=== PATIENT | male | born 1960 | race Caucasian/White ===

== ENCOUNTER 2017-03-09 17:01 | Emergency (ER) | payer BC ==
[2017-03-09 17:12] VITALS: BP 125/66
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
== END 2017-03-09 17:55 | disposition home or self-care (01) ==
LOC: UCEAST 17:01
DX: R60.9 Edema, unspecified (principal); K75.81 Nonalcoholic steatohepatitis (NASH); K76.0 Fatty (change of) liver, not elsewhere classified
CPT/HCPCS: 99212; G0463

== ENCOUNTER 2017-03-09 18:16 | Emergency (ER) | payer BC ==
[2017-03-09 20:06] LABS: Hematocrit 35 % (42-52); Mean Corpuscular HGB Conc 34 g/dl (31-36); Mean Corpuscular Hemoglobin 33 pg (27-31); Mean Corpuscular Volume 99 fL (80-94); Mean Platelet Volume 8 um3 (7.4-10.4); Red Blood Count 3.59 10^6/ul (4.0-5.4); Red Cell Distribution Width 14 % (10.5-15); White Blood Count 6.7 10^3/ul (3.5-10.8)
[2017-03-09 20:21] LABS: Albumin 2.9 g/dL (3.2-5.2); BUN/Creatinine Ratio 14.3 (8-20); Calcium 8.5 mg/dL (8.6-10.3); EGFR African American 148.4 (>60); EGFR Non-African American 115.4 (>60); Globulin 3.1 g/dL (2-4); Potassium 3.8 mmol/L (3.5-5.0); Total Bilirubin 0.9 mg/dL (0.2-1.0)
[2017-03-09] MEDS ORDERED: Furosemide TAB* 20 MG PO ONE (21:18)
[2017-03-09 22:54] LABS: Urine Bacteria Absent (Absent)
[2017-03-09 23:03] LABS: Urine Bilirubin Negative (Negative); Urine Glucose Negative (Negative); Urine Nitrite Negative (Negative)
[2017-03-09 23:50] VITALS: BP 121/58
--- NOTE | 2017-03-10 08:05 | RAD ---
Indication: Ascites. Real-time sonography of the abdomen was performed. The liver measures 13.2 cm in length. No focal lesions are noted although evaluation of the liver is limited due to body habitus. Moderate amount of ascites is noted. There is likely cirrhosis noted with lobulated contours of the liver. Gallbladder is not well demonstrated due to body habitus. The common duct measures 2.5 mm. The right kidney measures 11.0 x 6.5 x 6.3 cm with no hydronephrosis. The pancreas is obscured by overlying gas. Aorta and inferior vena cava are unremarkable. IMPRESSION: Likely cirrhotic liver with a small to moderate amount of ascites. Gallbladder is limited in evaluation.
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
== END 2017-03-09 23:51 | disposition home or self-care (01) ==
LOC: ED 18:16
DX: R18.8 Other ascites (principal); R60.9 Edema, unspecified
CPT/HCPCS: 36415; 76705; 80053; 81003; 83880; 84484; 85027; 85610; 85730; 93005; 99283; A9270-GY

== ENCOUNTER 2017-05-19 11:12 | Inpatient (IN) | payer BC ==
[2017-05-19 12:45] LABS: Hematocrit 34 % (42-52); Hemoglobin 11.7 g/dl (14.0-18.0); Mean Corpuscular HGB Conc 34 g/dl (31-36); Mean Corpuscular Hemoglobin 34 pg (27-31); Mean Corpuscular Volume 99 fL (80-94); Mean Platelet Volume 8 um3 (7.4-10.4); Red Blood Count 3.47 10^6/ul (4.0-5.4); Red Cell Distribution Width 15 % (10.5-15); White Blood Count 4.8 10^3/ul (3.5-10.8)
[2017-05-19 13:12] LABS: Albumin 2.7 g/dL (3.2-5.2); BUN/Creatinine Ratio 30.4 (8-20); Calcium 8.6 mg/dL (8.6-10.3); EGFR African American 150.9 (>60); EGFR Non-African American 117.4 (>60); Potassium 3.8 mmol/L (3.5-5.0); Total Bilirubin 0.8 mg/dL (0.2-1.0); Total Protein 5.7 g/dL (6.4-8.9)
[2017-05-19] MEDS ORDERED: Pantoprazole IV* 40 MG IV ONE (14:52)
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
[2017-05-19] MEDS ORDERED: Pantoprazole IV* 80 MG in NS 0.9% 100 ML* 100 ML IVPB ONE (15:00)
[2017-05-19] MEDS ORDERED: Ondansetron INJ* 2 MG/ML VIAL IV PRN (15:34)
[2017-05-19] MEDS ORDERED: Octreotide Acetate* 50 MCG in NS 0.9% 50 ML* 50 ML IVPB ONE (15:34)
[2017-05-19] MEDS ORDERED: Octreotide Acetate* 500 MCG in NS 0.9% 100 ML* 100 ML IVPB SCH (17:00)
[2017-05-19 18:29] LABS: Hematocrit 32 % (42-52); Hemoglobin 10.9 g/dl (14.0-18.0)
[2017-05-19 19:11] LABS: Urine Bilirubin Negative (Negative); Urine Glucose Negative (Negative); Urine Nitrite Negative (Negative)
--- NOTE | 2017-05-19 20:03 | HP ---
CC: Ella Courtney NP; Dr. Harman; Dr. Jaffe * HISTORY AND PHYSICAL: DATE OF ADMISSION: 05/19/17 PRIMARY CARE PROVIDER: Ella Courtney NP ATTENDING PHYSICIAN WHILE IN THE HOSPITAL: Steven Humphries MD * (report dictated by Ángel Sage NP) CONSULTING GASTROENTEROLOGY SPECIALIST: Dr. Jaffe. CHIEF COMPLAINT: 1. Tarry stool. 2. Bright red blood per rectum. HISTORY OF PRESENT ILLNESS: Mr. Segundo is a 57-year-old male patient who has a history of DELEON, varices, portal hypertension, IBS, hypertension, cataracts, which he recently just had extracted today and a history of Lyme disease. He comes into our ER today stating that this morning he noted when he got up at 5:30 in the morning to get ready for his cataract extraction he had an episode of a tarry black stool with also red blood mixed in with the stool. He says this is the first time he has noticed this, but the has noticed it and said that she has been noticing this off and on for the last week. Also, he has been complaining of more weakness and confusion off and on intermittently since Wednesday and just not acting himself. The patient did not really allude to this, but the has been noticing this. He says he has not had any chest pain or any shortness of breath. He denies any abdominal discomfort. He does have the history of the varices. He has not been having any vomiting. No nausea. He denies having any hematemesis. He denied having any, again chest pain or shortness of breath and no abdominal discomfort. No recent fevers or chills. He states he has been taking his medications all along with the exception today he did not take his meds because he was n.p.o. for the cataract extraction. The patient denies having any pain per rectum. He has only had the one episode of stool discoloration this morning. There has been none today. He came into the ED, was evaluated. There was concern for the GI bleeding and we were asked to evaluate for admission. PAST MEDICAL HISTORY: Significant for: 1. Esophageal varices. 2. Portal hypertension. 3. IBS. 4. Hypertension. 5. Cataracts. 6. DELEON. 7. Lyme disease. PAST SURGICAL HISTORY: 1. Cataract extraction. 2. Ankle surgery. HOME MEDICATIONS: Include: 1. Hyoscyamine 0.375 mg p.o. b.i.d. 2. Gugulipid 500 mg daily. 3. Vitamin E 400 mg daily. 4. Fish oil 2400 mg p.o. daily. 5. Ferrous sulfate 650 mg p.o. daily. 6. Magnesium 250 mg daily. 7. Vitamin B6, 100 mg daily. 8. B12, 1000 mcg daily. 9. Lecithin 1200 mg daily. 10. Vitamin C 500 mg daily. 11. Actigall 600 mg p.o. b.i.d. 12. Carafate 1 g p.o. t.i.d. 13. Diovan 320 mg p.o. daily. 14. Prevacid 30 mg daily. 15. Fexofenadine 180 mg p.o. daily. ALLERGIES TO MEDICATIONS: Include no known drug allergies. FAMILY HISTORY: His mother had valvular heart disease. His father, he thinks, had esophageal varices as well. SOCIAL HISTORY: He is a former smoker. Last time he had alcohol was 2 weeks ago. He does drink occasionally. Surrogate decision maker is his . REVIEW OF SYSTEMS: There is no documented fever. He denied having any significant weight change. There was no double vision. He denies having any ear discharge. There was no rhinorrhea. No sore throat. No thyroid enlargement. Denies having any dysuria. No frequency. There was no seizure and no loss of consciousness. No pruritus. Had no skin ulcerations. Review of 14 systems completed, all others negative. PHYSICAL EXAMINATION GENERAL: At this time, Mr. Segundo is a 57-year-old male patient. He is sitting in the ER stretcher. He does not appear to be in any acute distress. He is awake and he is alert. VITAL SIGNS: Blood pressure 106/56, pulse 72, respirations 18, O2 sat 97%, temperature 98.6. HEENT: Head: Atraumatic, normocephalic. Eyes: EOMs are intact. Sclerae are anicteric and not pale. Throat: Oral mucosa appears to be moist. No oropharyngeal erythema. NECK: Supple. LUNGS: Clear to auscultation bilaterally. No wheezes, rales or rhonchi were noted. HEART: Sounds S1, S2. Regular rate and rhythm. No murmurs, rubs, or gallops. ABDOMEN: Soft, flat, nontender. Bowel sounds are present. EXTREMITIES: Pulses were 2+ throughout. He is moving all 4 extremities with 5/ 5 strength. NEUROLOGIC: He is awake, he is alert. He is oriented x3. Tongue midline. Celebrity Chef Entrepreneur Media Personality are equal. He had no gross focal deficits. SKIN: Intact. LABORATORY DATA: WBC of 4.8, RBC 3.47, hemoglobin 11.7 which is near his baseline, hematocrit 34, platelet count of 155,000. INR was 1.12. Sodium was 135, potassium 3.8, chloride 107, bicarb 22, BUN 21, creatinine 0.69, glucose of 92, calcium 8.6, total bili is 0.8, AST 41, ALT 35. Ammonia is pending. His alk phos was 238. Albumin 2.7. Old medical records were reviewed. ASSESSMENT AND PLAN: Mr. Segundo is a 57-year-old male patient coming into the ER today with bright red blood per rectum and tarry stools. He will be admitted under observation status for: 1. GI bleed. This could be a lower GI bleed, also could be an upper GI bleed. He denies taking any NSAIDs, but he does have a history of esophageal varices , which is concerning for possible upper bleeding. My plan at this point is to go ahead and put him on Protonix drip and octreotide drip per the recommendations of Dr. Jaffe. We will get him on 2 saline logs as well. We will check serial H and H's. He has been typed and screened already and we will transfuse him if needed and we will follow him closely. He will be on a clear liquid diet. 2. Altered mental status. Again, at this point it seems to be pretty clear he is neurologically intact. I will check an ammonia level. Certainly that could be causing him to feel fatigued and confused at times. We will also get a flu swab and urine as well and we will monitor for any fevers. I am not going to give him any antibiotics at this point. He seems to be at his baseline. 3. History of portal hypertension and esophageal varices. He can follow with Dr. Harman. 4. History of nonalcoholic steatohepatitis. He can follow with his primary GI specialist. We will continue meds as prescribed. 5. Irritable bowel syndrome. Continues his p.o. meds. 6. Hypertension. In the setting of a possible bleed, we will hold his Diovan. 7. History of Lyme disease. Not an active issue. Currently, he will follow with his primary. 8. DVT prophylaxis. He is placed on SCDs. 10. Fluids, electrolytes, and nutrition: Clear liquid diet. TIME SPENT: Time spent on the admission approximately 60 minutes, greater than half of the time was spent [id number] with the patient, obtaining my history and physical, the other half of the time was spent going over the plan of care with the patient and implementing the plan of care. I did discuss plan of care with my attending, Dr. Humphries, he is in agreement. ÁNGEL SAGE NP [id number]/[facility]PS #: [id number] DIEGO
[2017-05-19] MEDS: RiFAXimin* 550 MG TAB PO SCH (20:47)
[2017-05-19] MEDS: Sucralfate TAB* 1 GM PO SCH (20:47)
[2017-05-19] MEDS: HYOSCYAMINE 0.375 MG PO SCH (20:48)
--- NOTE | 2017-05-19 23:22 | CONS ---
GASTROENTEROLOGY CONSULTATION DATE: 05/19/17 CONSULTING PHYSICIANS: Africa Barreto, Steven Humphries. REASON FOR CONSULTATION: Dark stool with visible blood this morning, with sporadic loose stools and dark stool over the last month. HISTORY: This 57-year-old man with cirrhosis, first having banding of esophageal varices 10 years ago. This morning, had cataract surgery on the right eye by Dr. Amaury Lanza at [facility]. He and his went down there, although they were aware that he had had some fluctuating symptoms recently and a dark stool this morning. They had seen some red blood emanating out from the stool. He had not had any vomiting or dizziness. In the recent months, he had lost some weight down to 201, but then over the last week or 10 days, it went up back to 218. His has seen dark stool in the toilet. He was told by Ella Courtney NP, at his primary office to increase his iron from 1 a day to 2. He has had cirrhosis known for 10 or 11 years. His alcohol use is difficult to pin down, but he quit drinking around the time liver disease was determined. His father had alcoholic cirrhosis. He has had many upper endoscopies with placement of bands, though in the recent years for the most part, portal hypertensive gastropathy has been seen. His only hospitalization was observation after a liver biopsy. He has been on ursodiol at times and also on furosemide 40 mg. PAST MEDICAL HISTORY: 1. Status post ankle surgery in 1986 on the left with fractures. 2. Hypertension. 3. History of GERD. 4. Cirrhosis with splenomegaly and ascites. His INR has always been pretty good and is currently 1.12. His platelets are 155. His albumin has been trending downward to currently 2.7. His alkaline phosphatase has been up since 2014. SOCIAL HISTORY: He is and he has retired from the [employer]. His children are in [place] and he related much of the history related to trips down there with effects on his bowel function. REVIEW OF SYSTEMS: No recent fevers or syncope. He has had some times when he seems to be spacey and not as well oriented, though these do not last very long. There have been no overt seizures or neuro deficit. He has not had any falls. No history of cough, hemoptysis, hematuria. PHYSICAL EXAM: He just had the right eye cataract done today. HEENT exam is otherwise unremarkable. He is anicteric. He has a protective plastic bubble over the right eye. He has no adenopathy. His lungs are clear and heart sounds are normal. The abdomen is obese and it is unclear if there is ascites. Rectal: Deferred. Extremities show deformity on the left ankle. There is otherwise no edema. He is alert and oriented. DIAGNOSTIC STUDIES/LAB DATA: Radiology review - he had an ultrasound of the abdomen in February, then a CT in March showing cirrhosis but no focal abnormality. Most recent alpha-fetoprotein in the hospital database, March 2016, was 2.6. Ferritin, 05/06/17, was 39.3 with iron saturation 21%, 65/316. ALTs, 10 values going back to November 2011, uniformly been in the 30s to low 40s. IMPRESSION: This 57-year-old man with longstanding cirrhosis, probably alcoholic, possibly with some nonalcoholic liver disease, or combination, now sometimes of bleeding today and possibly sporadically over the last month or two. Today, he had a cataract operation and how that will affect decisions on investigating the bleeding is unclear. Fortunately, the risk of a major variceal bleed is reduced with all the sessions of banding he has had through the last 10 years. Most likely, he has got an oozing gastric portal hypertensive bleed. Empirically, he is being placed on octreotide and IV PPI and they may be all that is required until his eye surgical site can be cleared as stabilized. Fortunately, his INR and platelet count are perfectly adequate. [id number]/[facility] #: [id number] MTDD
[2017-05-19 23:26] LABS: Hematocrit 30 % (42-52); Hemoglobin 10.2 g/dl (14.0-18.0)
[2017-05-20] MEDS: Pantoprazole IV* 80 MG in NS 0.9% 100 ML* 100 ML IVPB SCH ×3 (03:53→23:34)
[2017-05-20 05:55] LABS: Hematocrit 30 % (42-52); Hemoglobin 10.3 g/dl (14.0-18.0); Mean Corpuscular HGB Conc 35 g/dl (31-36); Mean Corpuscular Hemoglobin 34 pg (27-31); Mean Corpuscular Volume 98 fL (80-94); Mean Platelet Volume 7 um3 (7.4-10.4); Red Blood Count 3.02 10^6/ul (4.0-5.4); Red Cell Distribution Width 15 % (10.5-15); White Blood Count 3.4 10^3/ul (3.5-10.8)
[2017-05-20 05:58] LABS: Add Diff/Slide Review? Slide Review Added; Comments Flag Yes
[2017-05-20] MEDS ORDERED: Influenza VAC *QUAD* 2017-18* 0.5 ML SYRINGE IM ONE (09:00)
[2017-05-20] MEDS: HYOSCYAMINE 0.375 MG PO SCH ×2 (09:56→20:54)
[2017-05-20] MEDS: Sucralfate TAB* 1 GM PO SCH ×3 (09:58→20:55)
[2017-05-20] MEDS: RiFAXimin* 550 MG TAB PO SCH ×2 (09:58→20:55)
--- NOTE | 2017-05-20 11:36 | PN ---
Subjective Date of Service: 05/20/17 Interval History: This is a 57 yo gentleman with chronic liver failure secondary to DELEON with associated portal hypertension and varices, previously banded who was admitted yesterday with a GI bleed. He underwent a cataract extraction yesterday. He was treated with octreotide and Protonix drips. This am, he has had no further BMs since admission. No abd pain, n/v. He was intermittently confused and lethargic over the last week and he states this am he feels well. Objective Active Medications: Hyoscyamine (Levbid (Nf)) 0.375 mg PO BID [facility] Last Admin: 05/20/17 09:56 Dose: 0.375 mg Pantoprazole Sodium 80 mg/ (Sodium Chloride) 100 mls @ 10 mls/hr IVPB Q10H [facility] Last Admin: 05/20/17 03:53 Dose: 10 mls/hr Lactulose (Lactulose*) 30 ml PO TID [facility] Last Admin: 05/20/17 09:59 Dose: 30 ml Ondansetron HCl (Zofran Inj*) 4 mg IV Q6H PRN PRN Reason: NAUSEA Rifaximin (Xifaxan*) 550 mg PO BID [facility] Last Admin: 05/20/17 09:58 Dose: 550 mg Sucralfate (Carafate*) 1 gm PO TID [facility] Last Admin: 05/20/17 09:58 Dose: 1 gm Vital Signs: Temp Pulse Resp BP Pulse Ox 97.6 F 73 16 101/51 97 05/20/17 07:41 05/20/17 07:41 05/20/17 10:21 05/20/17 07:41 05/20/17 07:41 Oxygen Devices in Use Now: None Appearance: Well appearing 57 yo male in NAD, accompanied by his . Respiratory: Symmetrical Chest Expansion and Respiratory Effort, Clear to Auscultation Cardiovascular: RRR, - - murmur, 3/6 Abdominal: NL Sounds; No Tenderness; No Distention Extremities: - - trace LE edema Neurological: Alert and Oriented x 3 Result Diagrams: 05/20/17 05:46 05/19/17 12:34 Additional Lab and Data: . Microbiology and Other Data: Microbiology 05/19/17 16:30 Influenza Types A,B Antigen (RADHA) - Final Nasopharyngeal Specimen received for Influenza A/B Molecular testing Assess/Plan/Problems-Billing Assessment: This is a 57 yo male with chronic liver failure secondary to DELEON with portal HTN and esophageal varices who presented with a GI bleed. - Patient Problems (1) GI bleed Comment: Features of upper and lower GI bleed Hgb stable overnight, no further stools since admission Unlikely to be a variceal bleed based on his stability Plan to stop octreotide drip Cont Protonix drip Maintain clear liquid intake EGD will be delayed at this time as there is no evidence of ongoing bleeding and cataract procedure yesterday, this will be done as an outpatient with Dr Harman GI consult appreciated (2) Hepatic encephalopathy Comment: Mentation clear this am and appears alert Cont lactulose, titrate dose to 3-4 soft BMs daily (3) Chronic liver failure Comment: Secondary to DELEON with portal HTN and esophageal varices Followed by Dr Harman No evidence of acute decompensation (4) HTN (hypertension) Comment: Normotensive at this time Hold antihypertensive medications in the setting of GIB (5) Full code status (6) DVT prophylaxis Comment: Active bleeding, chemical prophylaxis contraindicated Status and Disposition: Inpatient. Anticipate possible discharge tomorrow
--- NOTE | 2017-05-20 11:55 | PN ---
Progress Note - Progress Note Date of Service: 05/20/17 SOAP: Subjective: Mr. Segundo is a 57 yo male with a history of esophageal varices, DELEON, portal hypertension, hypertension, IBS, and cataract extraction on the day of admission who presented to the ED c/o dark tarry stool surrounded by red blood. Patient states this is the first occurrence that he's noticed, although states she has witnessed other occurrences intermittently within the last month. Patient also admits to intermittent fatigue, weakness, and confusion. Patient seems to be doing well this morning and denies any symptoms such as fatigue, confusion, fevers, chills, CP, SOB, coughing, abdominal pain, nausea, vomiting. Last BM was yesterday morning, although patient admits to not having much to eat since before his cataract procedure. Objective: Vital Signs Temp Pulse Resp BP Pulse Ox 97.6 F 73 16 101/51 97 05/20/17 07:41 05/20/17 07:41 05/20/17 10:21 05/20/17 07:41 05/20/17 07:41 Laboratory Results - last 24 hr 05/19/17 05/19/17 05/19/17 12:34 12:34 12:34 WBC 4.8 RBC 3.47 L Hgb 11.7 L Hct 34 L MCV 99 H MCH 34 H MCHC 34 RDW 15 Plt Count 155 MPV 8 Neut % (Auto) 71.8 Lymph % (Auto) 14.1 L Sandoval % (Auto) 11.3 H Eos % (Auto) 1.5 Baso % (Auto) 1.3 Absolute Neuts (auto) 3.5 Absolute Lymphs (auto) 0.7 L Absolute Monos (auto) 0.5 Absolute Eos (auto) 0.1 Absolute Basos (auto) 0.1 Absolute Nucleated RBC 0 Nucleated RBC % 0.1 INR (Anticoag Therapy) Sodium 135 Potassium 3.8 Chloride 107 Carbon Dioxide 22 Anion Gap 6 BUN 21 Creatinine 0.69 Est GFR ( Amer) 150.9 Est GFR (Non-Af Amer) 117.4 BUN/Creatinine Ratio 30.4 H Glucose 92 Calcium 8.6 Total Bilirubin 0.80 AST 41 H ALT 35 Alkaline Phosphatase 238 H Ammonia Total Protein 5.7 L Albumin 2.7 L Globulin 3.0 Albumin/Globulin Ratio 0.9 L Urine Color Urine Appearance Urine pH Ur Specific [place] Urine Protein Urine Ketones Urine Blood Urine Nitrate Urine Bilirubin Urine Urobilinogen Ur Leukocyte Esterase Urine Glucose Urine Ascorbic Acid Influenza A (Rapid) Influenza B (Rapid) Blood Type O Positive Antibody Screen Negative 05/19/17 05/19/17 05/19/17 12:34 14:34 16:47 WBC RBC Hgb Hct MCV MCH MCHC RDW Plt Count MPV Neut % (Auto) Lymph % (Auto) Sandoval % (Auto) Eos % (Auto) Baso % (Auto) Absolute Neuts (auto) Absolute Lymphs (auto) Absolute Monos (auto) Absolute Eos (auto) Absolute Basos (auto) Absolute Nucleated RBC Nucleated RBC % INR (Anticoag Therapy) 1.12 H Sodium Potassium Chloride Carbon Dioxide Anion Gap BUN Creatinine Est GFR ( Amer) Est GFR (Non-Af Amer) BUN/Creatinine Ratio Glucose Calcium Total Bilirubin AST ALT Alkaline Phosphatase Ammonia TNP TNP Total Protein Albumin Globulin Albumin/Globulin Ratio Urine Color Urine Appearance Urine pH Ur Specific [place] Urine Protein Urine Ketones Urine Blood Urine Nitrate Urine Bilirubin Urine Urobilinogen Ur Leukocyte Esterase Urine Glucose Urine Ascorbic Acid Influenza A (Rapid) Influenza B (Rapid) Blood Type Antibody Screen 05/19/17 05/19/17 05/19/17 16:51 18:15 18:25 WBC RBC Hgb 10.9 L Hct 32 L MCV MCH MCHC RDW Plt Count MPV Neut % (Auto) Lymph % (Auto) Sandoval % (Auto) Eos % (Auto) Baso % (Auto) Absolute Neuts (auto) Absolute Lymphs (auto) Absolute Monos (auto) Absolute Eos (auto) Absolute Basos (auto) Absolute Nucleated RBC Nucleated RBC % INR (Anticoag Therapy) Sodium Potassium Chloride Carbon Dioxide Anion Gap BUN Creatinine Est GFR ( Amer) Est GFR (Non-Af Amer) BUN/Creatinine Ratio Glucose Calcium Total Bilirubin AST ALT Alkaline Phosphatase Ammonia 170 H Total Protein Albumin Globulin Albumin/Globulin Ratio Urine Color Urine Appearance Urine pH Ur Specific [place] Urine Protein Urine Ketones Urine Blood Urine Nitrate Urine Bilirubin Urine Urobilinogen Ur Leukocyte Esterase Urine Glucose Urine Ascorbic Acid Influenza A (Rapid) Negative Influenza B (Rapid) Negative Blood Type Antibody Screen 05/19/17 05/19/17 05/20/17 18:35 23:22 05:46 WBC 3.4 L RBC 3.02 L Hgb 10.2 L 10.3 L Hct 30 L 30 L MCV 98 H MCH 34 H MCHC 35 RDW 15 Plt Count 126 L MPV 7 L Neut % (Auto) 61.6 Lymph % (Auto) 18.6 L Sandoval % (Auto) 13.6 H Eos % (Auto) 2.5 Baso % (Auto) 3.7 H Absolute Neuts (auto) 2.1 Absolute Lymphs (auto) 0.6 L Absolute Monos (auto) 0.5 Absolute Eos (auto) 0.1 Absolute Basos (auto) 0.1 Absolute Nucleated RBC 0 Nucleated RBC % 0 INR (Anticoag Therapy) Sodium Potassium Chloride Carbon Dioxide Anion Gap BUN Creatinine Est GFR ( Amer) Est GFR (Non-Af Amer) BUN/Creatinine Ratio Glucose Calcium Total Bilirubin AST ALT Alkaline Phosphatase Ammonia Total Protein Albumin Globulin Albumin/Globulin Ratio Urine Color [place] Urine Appearance Clear Urine pH 6.0 Ur Specific [place] 1.032 H Urine Protein Negative Urine Ketones Trace H Urine Blood Negative Urine Nitrate Negative Urine Bilirubin Negative Urine Urobilinogen Positive H Ur Leukocyte Esterase Negative Urine Glucose Negative Urine Ascorbic Acid * H Influenza A (Rapid) Influenza B (Rapid) Blood Type Antibody Screen 05/20/17 05:46 WBC RBC Hgb Hct MCV MCH MCHC RDW Plt Count MPV Neut % (Auto) Lymph % (Auto) Sandoval % (Auto) Eos % (Auto) Baso % (Auto) Absolute Neuts (auto) Absolute Lymphs (auto) Absolute Monos (auto) Absolute Eos (auto) Absolute Basos (auto) Absolute Nucleated RBC Nucleated RBC % INR (Anticoag Therapy) 1.13 H Sodium Potassium Chloride Carbon Dioxide Anion Gap BUN Creatinine Est GFR ( Amer) Est GFR (Non-Af Amer) BUN/Creatinine Ratio Glucose Calcium Total Bilirubin AST ALT Alkaline Phosphatase Ammonia Total Protein Albumin Globulin Albumin/Globulin Ratio Urine Color Urine Appearance Urine pH Ur Specific [place] Urine Protein Urine Ketones Urine Blood Urine Nitrate Urine Bilirubin Urine Urobilinogen Ur Leukocyte Esterase Urine Glucose Urine Ascorbic Acid Influenza A (Rapid) Influenza B (Rapid) Blood Type Antibody Screen Active Medications Hyoscyamine (Levbid (Nf)) 0.375 mg PO BID [facility] Last Admin: 05/20/17 09:56 Dose: 0.375 mg Pantoprazole Sodium 80 mg/ (Sodium Chloride) 100 mls @ 10 mls/hr IVPB Q10H [facility] Last Admin: 05/20/17 03:53 Dose: 10 mls/hr Lactulose (Lactulose*) 30 ml PO TID [facility] Last Admin: 05/20/17 09:59 Dose: 30 ml Ondansetron HCl (Zofran Inj*) 4 mg IV Q6H PRN PRN Reason: NAUSEA Rifaximin (Xifaxan*) 550 mg PO BID [facility] Last Admin: 05/20/17 09:58 Dose: 550 mg Sucralfate (Carafate*) 1 gm PO TID [facility] Last Admin: 05/20/17 09:58 Dose: 1 gm General: WDWN 57 yo male in NAD. A&O x3. HEENT: Mucous membranes are moist and pink. CV: RRR, murmur appreciated. Respiratory: CTA w/o RRW BL GI: Abdomen is soft, non-distended, and non-tender to both light and deep palpation. BS active throughout. Extremities: Moderate pitting edema. Assessment: Mr. Segundo is a 57 yo male with a history of DELEON, esophageal varices, portal hypertension, IBS, hypertension, and recent cataract extraction who presents c/o dark tarry stools surrounded by bright red blood. Plan: 1. GI Bleed: GI consulted, continue PPI drip and octreotide. 2. Confusion: Ammonia level is 170, lactulose therapy initiated. 3. Portal HTN/Esophageal varices: Continue medications as prescribed. 4. DELEON: Continue medications as prescribed. 5. HTN: Hold Diovan d/t GI bleed. 6. DVT prophylaxis: SCDs
[2017-05-20 14:27] LABS: Hematocrit 32 % (42-52); Hemoglobin 11.1 g/dl (14.0-18.0)
[2017-05-21] MEDS: Sucralfate TAB* 1 GM PO SCH (05:24)
[2017-05-21 06:32] LABS: Hematocrit 31 % (42-52); Hemoglobin 10.9 g/dl (14.0-18.0); Mean Corpuscular HGB Conc 35 g/dl (31-36); Mean Corpuscular Hemoglobin 35 pg (27-31); Mean Corpuscular Volume 99 fL (80-94); Mean Platelet Volume 7 um3 (7.4-10.4); Red Blood Count 3.12 10^6/ul (4.0-5.4); Red Cell Distribution Width 15 % (10.5-15); White Blood Count 4.4 10^3/ul (3.5-10.8)
[2017-05-21 06:49] LABS: Albumin 2.5 g/dL (3.2-5.2); BUN/Creatinine Ratio 21.3 (8-20); EGFR African American 127.2 (>60); EGFR Non-African American 98.9 (>60); Globulin 2.6 g/dL (2-4); Potassium 3.7 mmol/L (3.5-5.0); Total Bilirubin 0.9 mg/dL (0.2-1.0); Total Protein 5.1 g/dL (6.4-8.9)
[2017-05-21] MEDS: RiFAXimin* 550 MG TAB PO SCH (09:20)
[2017-05-21] MEDS: HYOSCYAMINE 0.375 MG PO SCH (09:20)
[2017-05-21 09:31] VITALS: BP 130/61
--- NOTE | 2017-05-22 11:37 | DS ---
CC: Dr. Barreto; Dr. Harman * DISCHARGE SUMMARY: DATE OF ADMISSION: 05/19/17 DATE OF DISCHARGE: 05/21/17 PRIMARY CARE PROVIDER: Dr. Barreto. CONSULTING PARTNER: Dr. Jaffe. PRIMARY PARTNER: Dr. Harman. DISCHARGING PROVIDER: CINTHIA Wisdom SUPERVISING PHYSICIAN: Dr. Nia Tabares * (DICTATED BY CINTHIA WISDOM) PRIMARY DISCHARGE DIAGNOSES: 1. GI bleed - likely upper secondary to gastropathy related to portal hypertension. 2. Hepatic encephalopathy. SECONDARY DISCHARGE DIAGNOSES: 1. Chronic liver failure secondary to nonalcoholic steatohepatitis followed by Dr. Harman without evidence of acute decompensation. 2. Hypertension. DISCHARGE MEDICATIONS: 1. Vitamin C 500 mg p.o. daily. 2. Vitamin B12 1000 mcg p.o. daily. 3. Ferrous sulfate 65 mg p.o. daily. 4. Araceli 180 mg p.o. daily. 5. Lasix 40 mg p.o. twice daily. 6. Gugulipid (supplement) 500 mg p.o. daily. 7. Hyoscyamine 0.375 mg p.o. twice daily. 8. Lansoprazole 30 mg p.o. twice daily. 9. Lecithin 1200 mg p.o. daily. 10. Magnesium 250 mg p.o. daily. 11. [place]-3 fatty acids 2400 mg p.o. daily. 12. Vitamin B6 tablet 100 mg p.o. daily. 13. Rifaximin 550 mg p.o. twice daily. 14. Carafate 1 g p.o. 3 times daily. 15. Ursodiol 600 mg p.o. twice daily. 16. Valsartan 320 mg p.o. daily. 17. Vitamin E 400 units p.o. daily. Medication changes: 1. Increase Lasix to twice daily. 2. Increase lansoprazole to twice daily. 3. Start rifaximin. HOSPITAL IMAGING: None. HOSPITAL COURSE: This is a 57-year-old gentleman with chronic liver failure secondary to DELEON with known portal hypertension and associated esophageal varices as well as hypertension and irritable bowel, who presented to the emergency department after a cataract extraction with complaints of melena and some bright red blood. The patient had had some progressive weakness and periods of intermittent confusion over the last several weeks. No associated abdominal pain or bloating. Initial labs showed a hemoglobin of 11.7, which is similar to prior labs completed the week prior. His INR was only slightly elevated at 1.12 and chemistries were essentially within normal limits with just mild elevation of AST and alk phos. Ammonia, however, was significantly elevated at 170. The patient was afebrile and abdominal exam was benign. The patient was subsequently admitted for a GI bleed. The patient remained hemodynamically stable and hemoglobin on serial testing also remained nearly unchanged. No transfusion was necessary. The patient was initially started on octreotide and Protonix drip. Octreotide was eventually discontinued when his stability was further established, but he remained on the Protonix drip during his hospital stay. Due to rapid resolution of his bleeding and recent cataract procedure, the patient did not undergo endoscopy during his hospitalization, but this is instead scheduled for next week. The patient was treated with lactulose and rifaximin for hepatic encephalopathy with improvement in his mental status. He has previously been intolerance of significant diarrhea induced by lactulose and dose not wish to be discharged on this. He was seen by both Dr. Jaffe and Dr. Harman during his hospitalization. DISPOSITION AND FOLLOWUP PLAN: The patient is being discharged to home, who has an outpatient endoscopy with Dr. Harman for next week. The patient does encourage to call Dr. Harman's office later this afternoon to ensure this has been scheduled. Medication changes as noted above. TIME SPENT: Greater than 30 minutes was spent on this discharge. CINTHIA WISDOM [id number]/[facility] #: [id number] DIE[place]
== END 2017-05-21 10:40 | disposition home or self-care (01) ==
LOC: ED 11:12 → MED 16:01
PROVIDERS: ADMIT Internal Medicine; ATTEND Internal Medicine
DX: K76.6 Portal hypertension (principal); K92.1 Melena; I85.00 Esophageal varices without bleeding; K72.10 Chronic hepatic failure without coma; K31.89 Other diseases of stomach and duodenum; K75.81 Nonalcoholic steatohepatitis (NASH); I10 Essential (primary) hypertension; K58.9 Irritable bowel syndrome, unspecified; Z79.899 Other long term (current) drug therapy; Z82.49 Family history of ischemic heart disease and other diseases of the circulatory system; Z87.891 Personal history of nicotine dependence; R41.0 Disorientation, unspecified
CPT/HCPCS: 36415; 80053; 81003; 82105; 82140; 82272; 85014; 85018; 85025; 85610; 86850; 86900; 86901; 87502; 90686; A9270-GY; J2354

== ENCOUNTER 2019-01-07 20:54 | Emergency (ER) | payer BC ==
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
[2019-01-07 23:50] VITALS: BP 123/64
== END 2019-01-07 23:50 | disposition home or self-care (01) ==
LOC: ED 20:54
DX: M25.572 Pain in left ankle and joints of left foot (principal); X58.XXXA Exposure to other specified factors, initial encounter; Y92.9 Unspecified place or not applicable; I10 Essential (primary) hypertension; R01.1 Cardiac murmur, unspecified; K76.0 Fatty (change of) liver, not elsewhere classified; Z87.891 Personal history of nicotine dependence; Z79.899 Other long term (current) drug therapy
CPT/HCPCS: 99282

== ENCOUNTER 2019-12-04 18:40 | Inpatient (IN) ==
[2019-12-04 22:15] LABS: ABS Basophils 0.1 10^3/ul (0-0.2); ABS Eosinophils 0.6 10^3/ul (0-0.6); ABS Lymphocytes 1.4 10^3/ul (1.0-4.8); ABS Monocytes 0.8 10^3/ul (0-0.8); Eosinophil % 8.4 %; Hematocrit 28 % (42-52); Hemoglobin 9.8 g/dL (14.0-18.0); Lymphocyte % 19.2 %; Mean Corpuscular HGB Conc 35 g/dL (31-36); Mean Corpuscular Hemoglobin 35 pg (27-31); Mean Corpuscular Volume 101 fL (80-94); Mean Platelet Volume 7.8 fL (7.4-10.4); Nucleated Red Blood Cells % 0.1; Platelet Count 280 10^3/uL (150-450); Red Blood Count 2.78 10^6 /uL (4.18-5.48); Red Cell Distribution Width 14 % (10-15); White Blood Count 7.3 10^3/uL (3.5-10.8)
[2019-12-04 22:17] LABS: INR 1.29 (0.82-1.09)
[2019-12-04 22:24] LABS: ALT 33 U/L (7-52); AST 46 U/L (13-39); Albumin 2.7 g/dL (3.2-5.2); Alkaline Phosphatase 267 U/L (34-104); Anion Gap 7 mmol/L (2-11); BUN/Creatinine Ratio 25.3 (8-20); Blood Urea Nitrogen 25 mg/dL (6-24); CO2 Carbon Dioxide 21 mmol/L (22-32); Calcium 8.3 mg/dL (8.6-10.3); Chloride 105 mmol/L (101-111); EGFR Non-African American 76.9 (>60); Globulin 2.8 g/dL (2-4); Glucose 117 mg/dL (70-100); Potassium 4.2 mmol/L (3.5-5.0); Sodium 133 mmol/L (135-145); Total Protein 5.5 g/dL (6.4-8.9)
[2019-12-05] MEDS: Lactulose 30 ml UDC PO SCH ×2 (00:29→09:34)
[2019-12-05 01:13] LABS: % Iron Saturation 15 % (15-55); Iron 48 ug/dL (50-212); Total Iron Binding Capacity 323 mcg/dL (250-450); Transferrin 231 mg/dL (203-362)
[2019-12-05 03:24] LABS: Folate 14.52 ng/mL (>3.99)
[2019-12-05 06:47] LABS: Hematocrit 26 % (42-52); Mean Corpuscular HGB Conc 35 g/dL (31-36); Mean Corpuscular Hemoglobin 35 pg (27-31); Mean Corpuscular Volume 99 fL (80-94); Mean Platelet Volume 7.4 fL (7.4-10.4); Platelet Count 192 10^3/uL (150-450); Red Blood Count 2.61 10^6 /uL (4.18-5.48); Red Cell Distribution Width 14 % (10-15); White Blood Count 4.9 10^3/uL (3.5-10.8)
[2019-12-05 07:06] LABS: BUN/Creatinine Ratio 29.1 (8-20); Calcium 7.9 mg/dL (8.6-10.3); EGFR African American 109.4 (>60); EGFR Non-African American 90.4 (>60); Potassium 4.3 mmol/L (3.5-5.0)
[2019-12-05 08:42] LABS: Ferritin 33.4 ng/mL (24-336)
[2019-12-05] MEDS: Hyoscyamine ER 0.375 mg (NF) TAB PO SCH (09:34)
[2019-12-06] MEDS: Hyoscyamine ER 0.375 mg (NF) TAB PO SCH ×2 (00:29→09:46)
[2019-12-06 07:45] LABS: Hematocrit 29 % (42-52); Hemoglobin 9.9 g/dL (14.0-18.0); Mean Corpuscular HGB Conc 35 g/dL (31-36); Mean Corpuscular Hemoglobin 34 pg (27-31); Mean Corpuscular Volume 98 fL (80-94); Mean Platelet Volume 7.6 fL (7.4-10.4); Platelet Count 256 10^3/uL (150-450); Red Blood Count 2.92 10^6 /uL (4.18-5.48); Red Cell Distribution Width 14 % (10-15); White Blood Count 8.3 10^3/uL (3.5-10.8)
[2019-12-06 07:59] LABS: BUN/Creatinine Ratio 21.2 (8-20); Calcium 8.1 mg/dL (8.6-10.3); EGFR African American 110.9 (>60); EGFR Non-African American 91.6 (>60); Magnesium 1.7 mg/dL (1.9-2.7)
[2019-12-06] MEDS ORDERED: Iron Sucrose 200 MG in NS 0.9% 100 ml BAG 100 ML IVPB ONE (10:30)
[2019-12-06] MEDS ORDERED: Magnesium Sulfate 2 gm BAG 2 GM/50 ML BAG IVPB ONE (11:00)
[2019-12-06] MEDS ORDERED: Midazolam 10 mg/10 ml VIAL 1 mg/ml 10 ml VIAL (10 mg) ONE (12:11)
[2019-12-06] MEDS ORDERED: fentaNYL 100 mcg/2 ml 50 MCG/ML VIAL ONE (12:11)
[2019-12-06] MEDS ORDERED: cefTRIAXone 1 gm/50 mL NS BAG 1 GM/50 ML BAG IVPB SCH (14:00)
[2019-12-07 06:03] LABS: ABS Basophils 0.1 10^3/ul (0-0.2); ABS Eosinophils 0.3 10^3/ul (0-0.6); ABS Lymphocytes 0.7 10^3/ul (1.0-4.8); ABS Monocytes 0.7 10^3/ul (0-0.8); Eosinophil % 5.1 %; Hematocrit 26 % (42-52); Hemoglobin 8.8 g/dL (14.0-18.0); Lymphocyte % 12.9 %; Mean Corpuscular HGB Conc 34 g/dL (31-36); Mean Corpuscular Hemoglobin 34 pg (27-31); Mean Corpuscular Volume 98 fL (80-94); Mean Platelet Volume 7.1 fL (7.4-10.4); Nucleated Red Blood Cells % 0.1; Platelet Count 179 10^3/uL (150-450); Red Blood Count 2.63 10^6 /uL (4.18-5.48); Red Cell Distribution Width 14 % (10-15); White Blood Count 5.1 10^3/uL (3.5-10.8)
[2019-12-07 06:17] LABS: BUN/Creatinine Ratio 32.8 (8-20); Calcium 7.9 mg/dL (8.6-10.3); EGFR African American 145.9 (>60); EGFR Non-African American 120.6 (>60); Potassium 4.1 mmol/L (3.5-5.0)
[2019-12-07] MEDS ORDERED: Iron Sucrose 200 MG in NS 0.9% 100 ml BAG 100 ML IVPB ONE (08:28)
[2019-12-07 12:32] LABS: Hematocrit 28 % (42-52); Hemoglobin 9.7 g/dL (14.0-18.0)
[2019-12-07 12:38] VITALS: BP 107/56
== END 2019-12-07 14:00 | disposition home or self-care (01) | DRG 143 ==
LOC: ED 18:40 → MED 18:40
PROVIDERS: ADMIT Pediatrics; ATTEND Internal Medicine

== ENCOUNTER 2020-01-22 05:13 | Inpatient (IN) ==
[2020-01-22] MEDS ORDERED: NS 0.9% 1000 ml BAG 1,000 ML IV ONE (05:14)
[2020-01-22] MEDS ORDERED: Iodixanol (CONTRAST) 320 MG/ML 100 ML SDV IV ONE (05:31)
[2020-01-22] MEDS ORDERED: Lactulose 30 ml UDC NG TUBE ONE (05:41)
[2020-01-22 06:03] LABS: INR 1.3 (0.82-1.09)
[2020-01-22 06:10] LABS: Albumin 2.2 g/dL (3.2-5.2); Albumin/Globulin Ratio 0.6 (1-3); BUN/Creatinine Ratio 25.3 (8-20); Calcium 7.6 mg/dL (8.6-10.3); EGFR African American 97.5 (>60); EGFR Non-African American 80.6 (>60); Globulin 3.6 g/dL (2-4); HDL Cholesterol 31.9 mg/dL; Total Protein 5.8 g/dL (6.4-8.9)
[2020-01-22 06:15] LABS: ABS Eosinophils 0.1 10^3/ul (0-0.6); ABS Lymphocytes 1.8 10^3/ul (1.0-4.8); ABS Monocytes 1.2 10^3/ul (0-0.8); ABS Neutrophils 6.3 10^3/ul (1.5-7.7); Eosinophil % 1.3 %; Hematocrit 32 % (42-52); Hemoglobin 11.3 g/dL (14.0-18.0); Lymphocyte % 18.8 %; Mean Corpuscular HGB Conc 35 g/dL (31-36); Mean Corpuscular Hemoglobin 33 pg (27-31); Mean Corpuscular Volume 94 fL (80-94); Mean Platelet Volume 7.1 fL (7.4-10.4); Nucleated Red Blood Cells % 0.1; Platelet Count 217 10^3/uL (150-450); Red Blood Count 3.44 10^6 /uL (4.18-5.48); Red Cell Distribution Width 18 % (10-15); White Blood Count 9.4 10^3/uL (3.5-10.8)
[2020-01-22 07:31] LABS: Urine Appearance Clear; Urine Bacteria Absent (Absent); Urine Bilirubin Negative (Negative); Urine Blood Negative (Negative); Urine Color Yellow; Urine Glucose Negative (Negative); Urine Ketones Trace (Negative); Urine Nitrite Negative (Negative); Urine Protein Negative (Negative); Urine Red Blood Cell 3+(>10/hpf) (Absent); Urine Urobilinogen Negative (Negative); Urine White Blood Cell Trace(0-5/hpf) (Absent)
[2020-01-22 07:32] LABS: Potassium 3.9 mmol/L (3.5-5.0)
[2020-01-22] MEDS ORDERED: Furosemide 40 mg/4 ml IV VIAL IV ONE (08:50)
[2020-01-22] MEDS: cefTRIAXone 1 gm/50 mL NS BAG 1 GM/50 ML BAG IVPB SCH ×2 (09:46→21:09)
[2020-01-22] MEDS: Pantoprazole VIAL 40 MG VIAL IV SCH ×2 (09:51→21:09)
[2020-01-22] MEDS: Lactulose 30 ml UDC NG TUBE SCH ×3 (09:51→21:09)
[2020-01-22] MEDS ORDERED: Perflutren Lipid Microsphere 3 ML VIAL ONE (10:23)
[2020-01-22 12:19] LABS: Urine Benzodiazepine Screen None Detected (None Detect); Urine Cannabinoids Screen None Detected (None Detect); Urine Opiates Screen None Detected (None Detect)
[2020-01-22] MEDS ORDERED: Etomidate 40 mg/20 ml (2 MG/ML) 20 ml VIAL (40 mg) ONE (14:46)
[2020-01-22] MEDS ORDERED: Dexmedetomidine 1,000 MCG in NS 0.9% 250 ml 240 ML IV SCH (15:00)
[2020-01-22] MEDS: Chlorhexidine MOUTHWASH 0.12% 15 ML UDC SWISH SPIT SCH ×4 (17:31→23:48)
[2020-01-23] MEDS: Chlorhexidine MOUTHWASH 0.12% 15 ML UDC SWISH SPIT SCH ×2 (04:11→07:44)
[2020-01-23] MEDS ORDERED: fentaNYL 100 mcg/2 ml 50 MCG/ML VIAL IV SLOW PU ONE (04:31)
[2020-01-23 05:06] LABS: ABS Basophils 0.1 10^3/ul (0-0.2); ABS Eosinophils 0.1 10^3/ul (0-0.6); ABS Lymphocytes 1.6 10^3/ul (1.0-4.8); ABS Monocytes 1.1 10^3/ul (0-0.8); ABS Neutrophils 6.6 10^3/ul (1.5-7.7); Hematocrit 31 % (42-52); Hemoglobin 10.8 g/dL (14.0-18.0); Lymphocyte % 16.3 %; Mean Corpuscular HGB Conc 35 g/dL (31-36); Mean Corpuscular Hemoglobin 33 pg (27-31); Mean Corpuscular Volume 94 fL (80-94); Mean Platelet Volume 7.3 fL (7.4-10.4); Nucleated Red Blood Cells % 0.1; Platelet Count 156 10^3/uL (150-450); Red Blood Count 3.31 10^6 /uL (4.18-5.48); Red Cell Distribution Width 18 % (10-15); White Blood Count 9.5 10^3/uL (3.5-10.8)
[2020-01-23] MEDS ORDERED: NS 0.9% 1000 ml BAG 1,000 ML IV ONE ×2 (05:07→05:54)
[2020-01-23 05:12] LABS: INR 1.45 (0.82-1.09)
[2020-01-23 06:04] LABS: Albumin 1.8 g/dL (3.2-5.2); Calcium 7.5 mg/dL (8.6-10.3); Potassium 3.5 mmol/L (3.5-5.0)
[2020-01-23 06:10] LABS: Albumin/Globulin Ratio 0.6 (1-3); BUN/Creatinine Ratio 32.2 (8-20); EGFR African American 103.8 (>60); EGFR Non-African American 85.8 (>60); Total Protein 4.8 g/dL (6.4-8.9)
[2020-01-23] MEDS ORDERED: Norepinephrine 16MCG/ML IVPRE 4,000 MCG/250 ML BAG IV ONE (07:37)
[2020-01-23] MEDS: Pantoprazole VIAL 40 MG VIAL IV SCH ×2 (07:43→21:04)
[2020-01-23] MEDS: Lactulose 30 ml UDC NG TUBE SCH ×3 (07:44→21:52)
[2020-01-23] MEDS: cefTRIAXone 1 gm/50 mL NS BAG 1 GM/50 ML BAG IVPB SCH ×2 (07:44→21:04)
[2020-01-23] MEDS ORDERED: Norepinephrine 16MCG/ML IVPRE 4,000 MCG/250 ML BAG IV SCH (08:00)
[2020-01-23] MEDS ORDERED: Octreotide Acetate 500 MCG/ML 1 ML VIAL IV SCH (11:30)
[2020-01-23] MEDS: Albumin Human 5% 25 GM/500 ML BTL IV SCH ×3 (12:11→19:29)
[2020-01-23] MEDS: OCTREOTIDE ACETATE IV SCH ×2 (12:49→22:24)
[2020-01-23] MEDS: NS 0.9% IV SCH ×2 (12:49→22:24)
[2020-01-23 17:51] LABS: Urine Chloride Concentration < 22 mmol/L; Urine Potassium Concentration 90.8 mmol/L; Urine Sodium Concentration < 18 mmol/L
[2020-01-24] MEDS: Albumin Human 5% 25 GM/500 ML BTL IV SCH (03:11)
[2020-01-24 03:59] LABS: ABS Eosinophils 0.1 10^3/ul (0-0.6); ABS Lymphocytes 1.2 10^3/ul (1.0-4.8); ABS Monocytes 0.7 10^3/ul (0-0.8); ABS Neutrophils 4.4 10^3/ul (1.5-7.7); Eosinophil % 1.8 %; Hematocrit 26 % (42-52); Hemoglobin 8.9 g/dL (14.0-18.0); Lymphocyte % 18.2 %; Mean Corpuscular HGB Conc 34 g/dL (31-36); Mean Corpuscular Hemoglobin 32 pg (27-31); Mean Corpuscular Volume 94 fL (80-94); Nucleated Red Blood Cells % 0.2; Platelet Count 131 10^3/uL (150-450); Red Blood Count 2.78 10^6 /uL (4.18-5.48); Red Cell Distribution Width 19 % (10-15); White Blood Count 6.4 10^3/uL (3.5-10.8)
[2020-01-24 04:06] LABS: INR 1.57 (0.82-1.09)
[2020-01-24 04:14] LABS: Albumin 2.2 g/dL (3.2-5.2); BUN/Creatinine Ratio 35.1 (8-20); Calcium 7.6 mg/dL (8.6-10.3); EGFR African American 124.3 (>60); EGFR Non-African American 102.7 (>60); Globulin 2.2 g/dL (2-4); Phosphorus 2.9 mg/dL (2.5-5.0); Potassium 3.1 mmol/L (3.5-5.0); Total Bilirubin 0.9 mg/dL (0.2-1.0); Total Protein 4.4 g/dL (6.4-8.9)
[2020-01-24] MEDS: cefTRIAXone 1 gm/50 mL NS BAG 1 GM/50 ML BAG IVPB SCH ×2 (07:57→20:18)
[2020-01-24] MEDS: Pantoprazole VIAL 40 MG VIAL IV SCH (07:57)
[2020-01-24] MEDS: Lactulose 30 ml UDC NG TUBE SCH ×3 (08:17→20:18)
[2020-01-24] MEDS ORDERED: Potassium Chloride LIQUID 20 MEQ/15 ML LIQUID PO ONE (08:18)
[2020-01-24] MEDS ORDERED: Furosemide 20 mg/2 ml IV VIAL IV ONE (08:27)
[2020-01-24] MEDS: OCTREOTIDE ACETATE IV SCH ×3 (09:56→20:29)
[2020-01-24] MEDS: NS 0.9% IV SCH ×3 (09:56→20:29)
[2020-01-24] MEDS: Heparin 5000 UNITS/ML 1 mL VIAL SUBCUT SCH ×2 (11:55→20:19)
[2020-01-24 15:30] LABS: ABS Basophils 0.1 10^3/ul (0-0.2); ABS Eosinophils 0.1 10^3/ul (0-0.6); ABS Lymphocytes 1.2 10^3/ul (1.0-4.8); ABS Monocytes 0.8 10^3/ul (0-0.8); ABS Neutrophils 6.2 10^3/ul (1.5-7.7); Eosinophil % 1.3 %; Hematocrit 30 % (42-52); Hemoglobin 10.3 g/dL (14.0-18.0); Lymphocyte % 14.5 %; Mean Corpuscular HGB Conc 34 g/dL (31-36); Mean Corpuscular Hemoglobin 33 pg (27-31); Mean Corpuscular Volume 95 fL (80-94); Mean Platelet Volume 7.5 fL (7.4-10.4); Nucleated Red Blood Cells % 0.3; Platelet Count 144 10^3/uL (150-450); Red Blood Count 3.17 10^6 /uL (4.18-5.48); Red Cell Distribution Width 18 % (10-15); White Blood Count 8.3 10^3/uL (3.5-10.8)
[2020-01-24 16:01] LABS: BUN/Creatinine Ratio 29.8 (8-20); Calcium 8.3 mg/dL (8.6-10.3); EGFR African American 112.4 (>60); EGFR Non-African American 92.9 (>60); Potassium 3.5 mmol/L (3.5-5.0)
[2020-01-25] MEDS ORDERED: Metoprolol Tartrate 5 mg VIAL 5 ml VIAL (1 mg/ml) IV ONE ×2 (01:00→09:03)
[2020-01-25 01:25] LABS: Calcium 7.9 mg/dL (8.6-10.3); Magnesium 1.9 mg/dL (1.9-2.7); Potassium 3.3 mmol/L (3.5-5.0)
[2020-01-25 01:30] LABS: BUN/Creatinine Ratio 28.2 (8-20); EGFR African American 122.4 (>60); EGFR Non-African American 101.2 (>60)
[2020-01-25] MEDS: KCL 20 MEQ/100 ML IVPREMIX 20 MEQ/100 ML BAG IV SCH ×2 (01:49→04:16)
[2020-01-25 06:06] LABS: ABS Basophils 0.1 10^3/ul (0-0.2); ABS Eosinophils 0.1 10^3/ul (0-0.6); ABS Lymphocytes 1.1 10^3/ul (1.0-4.8); ABS Monocytes 0.7 10^3/ul (0-0.8); ABS Neutrophils 3.9 10^3/ul (1.5-7.7); Eosinophil % 2.2 %; Hematocrit 29 % (42-52); Hemoglobin 9.8 g/dL (14.0-18.0); Mean Corpuscular HGB Conc 34 g/dL (31-36); Mean Corpuscular Hemoglobin 32 pg (27-31); Mean Corpuscular Volume 94 fL (80-94); Mean Platelet Volume 6.9 fL (7.4-10.4); Nucleated Red Blood Cells % 0.2; Platelet Count 131 10^3/uL (150-450); Red Blood Count 3.07 10^6 /uL (4.18-5.48); Red Cell Distribution Width 19 % (10-15); White Blood Count 5.9 10^3/uL (3.5-10.8)
[2020-01-25 06:12] LABS: INR 1.54 (0.82-1.09)
[2020-01-25 06:23] LABS: Albumin 2.1 g/dL (3.2-5.2); Albumin/Globulin Ratio 0.9 (1-3); BUN/Creatinine Ratio 32.9 (8-20); Calcium 7.8 mg/dL (8.6-10.3); EGFR African American 138.7 (>60); EGFR Non-African American 114.6 (>60); Globulin 2.3 g/dL (2-4); Magnesium 1.9 mg/dL (1.9-2.7); Potassium 3.9 mmol/L (3.5-5.0); Total Bilirubin 0.8 mg/dL (0.2-1.0); Total Protein 4.4 g/dL (6.4-8.9)
[2020-01-25] MEDS: Heparin 5000 UNITS/ML 1 mL VIAL SUBCUT SCH ×2 (08:06→21:02)
[2020-01-25] MEDS: Lactulose 30 ml UDC PO SCH ×3 (08:06→21:02)
[2020-01-25] MEDS: cefTRIAXone 1 gm/50 mL NS BAG 1 GM/50 ML BAG IVPB SCH ×2 (09:12→21:03)
[2020-01-25 09:34] LABS: Troponin I 0.03 ng/mL (<0.03)
[2020-01-26 06:07] LABS: INR 1.46 (0.82-1.09)
[2020-01-26 06:29] LABS: Magnesium 1.9 mg/dL (1.9-2.7)
[2020-01-26 07:05] LABS: ABS Basophils 0.1 10^3/ul (0-0.2); ABS Eosinophils 0.1 10^3/ul (0-0.6); ABS Monocytes 0.7 10^3/ul (0-0.8); ABS Neutrophils 3.6 10^3/ul (1.5-7.7); Eosinophil % 2.6 %; Hematocrit 30 % (42-52); Hemoglobin 10.1 g/dL (14.0-18.0); Lymphocyte % 18.2 %; Mean Corpuscular HGB Conc 34 g/dL (31-36); Mean Corpuscular Hemoglobin 32 pg (27-31); Mean Corpuscular Volume 94 fL (80-94); Mean Platelet Volume 6.9 fL (7.4-10.4); Nucleated Red Blood Cells % 0.1; Platelet Count 146 10^3/uL (150-450); Red Blood Count 3.15 10^6 /uL (4.18-5.48); Red Cell Distribution Width 18 % (10-15); White Blood Count 5.5 10^3/uL (3.5-10.8)
[2020-01-26] MEDS: Heparin 5000 UNITS/ML 1 mL VIAL SUBCUT SCH ×2 (09:06→21:23)
[2020-01-26] MEDS: Lactulose 30 ml UDC PO SCH ×3 (09:07→21:23)
[2020-01-26] MEDS: cefTRIAXone 1 gm/50 mL NS BAG 1 GM/50 ML BAG IVPB SCH (09:07)
[2020-01-26 11:41] LABS: Calcium 7.8 mg/dL (8.6-10.3); Potassium 3.6 mmol/L (3.5-5.0)
[2020-01-26 11:47] LABS: BUN/Creatinine Ratio 26.5 (8-20); EGFR Non-African American 118.2 (>60)
[2020-01-26] MEDS ORDERED: cefTRIAXone 1 gm/50 mL NS BAG 1 GM/50 ML BAG IVPB ONE (16:14)
[2020-01-27 05:59] LABS: ABS Eosinophils 0.1 10^3/ul (0-0.6); ABS Lymphocytes 0.8 10^3/ul (1.0-4.8); ABS Monocytes 0.6 10^3/ul (0-0.8); Eosinophil % 2.9 %; Hematocrit 27 % (42-52); Hemoglobin 9.3 g/dL (14.0-18.0); Lymphocyte % 21.7 %; Mean Corpuscular HGB Conc 34 g/dL (31-36); Mean Corpuscular Hemoglobin 32 pg (27-31); Mean Corpuscular Volume 93 fL (80-94); Mean Platelet Volume 6.6 fL (7.4-10.4); Nucleated Red Blood Cells % 0.2; Platelet Count 111 10^3/uL (150-450); Red Blood Count 2.95 10^6 /uL (4.18-5.48); Red Cell Distribution Width 18 % (10-15); White Blood Count 3.6 10^3/uL (3.5-10.8)
[2020-01-27 06:11] LABS: INR 1.55 (0.82-1.09)
[2020-01-27 06:14] LABS: Albumin 1.9 g/dL (3.2-5.2); Albumin/Globulin Ratio 0.9 (1-3); BUN/Creatinine Ratio 27.1 (8-20); Calcium 7.7 mg/dL (8.6-10.3); EGFR African American 168.4 (>60); EGFR Non-African American 139.2 (>60); Globulin 2.2 g/dL (2-4); Potassium 3.3 mmol/L (3.5-5.0); Total Bilirubin 0.8 mg/dL (0.2-1.0); Total Protein 4.1 g/dL (6.4-8.9)
[2020-01-27] MEDS: Heparin 5000 UNITS/ML 1 mL VIAL SUBCUT SCH (09:13)
[2020-01-27] MEDS: Lactulose 30 ml UDC PO SCH (09:13)
[2020-01-27 09:38] VITALS: BP 123/66
== END 2020-01-27 11:00 | disposition home or self-care (01) | DRG 279 ==
LOC: EDBD → MERGE 05:13 → ED 05:13 → ICU 08:58 → MEDTELE 01-26 11:50
PROVIDERS: ADMIT Internal Medicine; ATTEND Hospitalist

== ENCOUNTER 2020-03-07 22:38 | Inpatient (IN) ==
[2020-03-08 00:17] LABS: ABS Basophils 0.1 10^3/ul (0-0.2); ABS Lymphocytes 2.3 10^3/ul (1.0-4.8); ABS Monocytes 1.2 10^3/ul (0-0.8); ABS Neutrophils 7.2 10^3/ul (1.5-7.7); Eosinophil % 0.4 %; Hematocrit 36 % (42-52); Hemoglobin 12.6 g/dL (14.0-18.0); Lymphocyte % 21.6 %; Mean Corpuscular HGB Conc 35 g/dL (31-36); Mean Corpuscular Hemoglobin 33 pg (27-31); Mean Corpuscular Volume 96 fL (80-94); Mean Platelet Volume 7.6 fL (7.4-10.4); Nucleated Red Blood Cells % 0.1; Platelet Count 143 10^3/uL (150-450); Red Cell Distribution Width 22 % (10-15); White Blood Count 10.8 10^3/uL (3.5-10.8)
[2020-03-08 00:25] LABS: INR 1.46 (0.82-1.09)
[2020-03-08 00:27] LABS: Acetaminophen < 15 mcg/mL; Alcohol, S < 10 mg/dL (<10)
[2020-03-08 00:29] LABS: ALT 33 U/L (7-52); AST 47 U/L (13-39); Albumin 1.9 g/dL (3.2-5.2); Albumin/Globulin Ratio 0.5 (1-3); Alkaline Phosphatase 253 U/L (34-104); Anion Gap 6 mmol/L (2-11); BUN/Creatinine Ratio 20.9 (8-20); Blood Urea Nitrogen 31 mg/dL (6-24); CO2 Carbon Dioxide 24 mmol/L (22-32); Calcium 8.4 mg/dL (8.6-10.3); Chloride 97 mmol/L (101-111); Creatine Kinase 32 U/L (10-223); EGFR African American 58.3 (>60); EGFR Non-African American 48.2 (>60); Globulin 3.5 g/dL (2-4); Glucose 126 mg/dL (70-100); Sodium 127 mmol/L (135-145); Total Protein 5.4 g/dL (6.4-8.9)
[2020-03-08] MEDS ORDERED: Lactulose 30 ml UDC NG TUBE ONE (00:32)
[2020-03-08 00:43] LABS: Troponin I 0.03 ng/mL (<0.03)
[2020-03-08] MEDS ORDERED: Succinylcholine 200 mg VIAL 20 mg/ml 10 ml VIAL (200 mg) ONE (01:44)
[2020-03-08] MEDS ORDERED: Etomidate 40 mg/20 ml (2 MG/ML) 20 ml VIAL (40 mg) ONE (01:50)
[2020-03-08] MEDS ORDERED: NS 0.9% 1000 ml BAG 1,000 ML IV SCH ×2 (02:15→18:30)
[2020-03-08 02:56] LABS: Urine Appearance Clear; Urine Bilirubin Negative (Negative); Urine Blood Negative (Negative); Urine Color Yellow; Urine Glucose Negative (Negative); Urine Ketones Negative (Negative); Urine Nitrite Negative (Negative); Urine Protein Negative (Negative); Urine Specific Gravity 1.013 (1.010-1.030); Urine Urobilinogen Negative (Negative)
[2020-03-08 03:13] LABS: Urine Benzodiazepine Screen None Detected (None Detect); Urine Cannabinoids Screen None Detected (None Detect); Urine Opiates Screen None Detected (None Detect)
[2020-03-08] MEDS: cefTRIAXone 1 gm/50 mL NS BAG 1 GM/50 ML BAG IVPB SCH (04:03)
[2020-03-08] MEDS: Rifaximin 20 mg/mL Suspension (Pharmacy to Compound) PO SCH ×2 (04:05→22:00)
[2020-03-08] MEDS: Lactulose 30 ml UDC NG TUBE SCH ×10 (04:06→23:56)
[2020-03-08] MEDS: Pantoprazole VIAL 40 MG VIAL IV SCH ×2 (04:06→21:59)
[2020-03-08] MEDS: Chlorhexidine MOUTHWASH 0.12% 15 ML UDC TOPICAL SCH ×5 (05:45→21:58)
[2020-03-08 06:04] LABS: BUN/Creatinine Ratio 20.7 (8-20); Calcium 8.3 mg/dL (8.6-10.3); EGFR African American 59.7 (>60); EGFR Non-African American 49.3 (>60); Potassium 4.9 mmol/L (3.5-5.0)
[2020-03-08 08:27] LABS: Phosphorus 2.7 mg/dL (2.5-5.0)
[2020-03-08] MEDS: Mometasone/Formoter 100/5 MDI INH SCH ×2 (08:52→19:03)
[2020-03-08] MEDS ORDERED: Lactulose 300 ML for PR 200 GM/300 ML BTL PR ONE (10:00)
[2020-03-08] MEDS: Albumin Human 25% 25 GM/100 ML BTL IV SCH ×4 (10:14→22:52)
[2020-03-08 11:40] LABS: Body Fluid Source Peritonial Fluid
[2020-03-08 11:53] LABS: Troponin I 0.01 ng/mL (<0.03)
[2020-03-08 12:30] LABS: Body Fluid Mono 59 %
[2020-03-08] MEDS ORDERED: Lactulose 300 ML for PR 10 GM/15 ML BTL PR SCH (13:00)
[2020-03-08] MEDS: Heparin 5000 UNITS/ML 1 mL VIAL SUBCUT SCH ×2 (14:18→21:59)
[2020-03-08] MEDS: Lactulose 300 ML for PR 200 GM/300 ML BTL PR SCH ×3 (14:34→22:39)
[2020-03-09] MEDS: Lactulose 30 ml UDC NG TUBE SCH ×6 (02:30→17:49)
[2020-03-09] MEDS: Chlorhexidine MOUTHWASH 0.12% 15 ML UDC TOPICAL SCH ×2 (02:30→06:29)
[2020-03-09] MEDS ORDERED: NS 0.9% 1000 ml BAG 1,000 ML IV ONE (03:41)
[2020-03-09] MEDS: NS 0.9% 1000 ml BAG 1,000 ML IV SCH ×3 (04:30→22:17)
[2020-03-09 05:42] LABS: INR 1.54 (0.82-1.09)
[2020-03-09 05:47] LABS: Calcium 9.2 mg/dL (8.6-10.3); Magnesium 2.3 mg/dL (1.9-2.7); Potassium 3.8 mmol/L (3.5-5.0)
[2020-03-09 05:52] LABS: EGFR African American 62.7 (>60); EGFR Non-African American 51.8 (>60); Phosphorus 4.2 mg/dL (2.5-5.0)
[2020-03-09 06:26] LABS: ABS Basophils 0.1 10^3/ul (0-0.2); ABS Lymphocytes 1.2 10^3/ul (1.0-4.8); ABS Monocytes 0.7 10^3/ul (0-0.8); ABS Neutrophils 6.4 10^3/ul (1.5-7.7); Eosinophil % 0.5 %; Hematocrit 31 % (42-52); Lymphocyte % 14.8 %; Mean Corpuscular HGB Conc 36 g/dL (31-36); Mean Corpuscular Hemoglobin 34 pg (27-31); Mean Corpuscular Volume 96 fL (80-94); Mean Platelet Volume 7.2 fL (7.4-10.4); Nucleated Red Blood Cells % 0.3; Platelet Count 89 10^3/uL (150-450); Red Blood Count 3.21 10^6 /uL (4.18-5.48); Red Cell Distribution Width 22 % (10-15); White Blood Count 8.4 10^3/uL (3.5-10.8)
[2020-03-09] MEDS: cefTRIAXone 1 gm/50 mL NS BAG 1 GM/50 ML BAG IVPB SCH (06:29)
[2020-03-09] MEDS: Heparin 5000 UNITS/ML 1 mL VIAL SUBCUT SCH ×3 (06:29→21:51)
[2020-03-09] MEDS: Mometasone/Formoter 100/5 MDI INH SCH ×2 (07:29→19:16)
[2020-03-09] MEDS ORDERED: Influenza VAC *QUAD* 2020-21* 0.5 ML SYRINGE IM ONE (09:00)
[2020-03-09] MEDS: Rifaximin 20 mg/mL Suspension (Pharmacy to Compound) PO SCH (09:35)
[2020-03-09] MEDS: Lactulose 30 ml UDC PO SCH (21:51)
[2020-03-10] MEDS: Lactulose 30 ml UDC PO SCH ×6 (02:09→21:36)
[2020-03-10 05:26] LABS: Albumin 2.4 g/dL (3.2-5.2); Calcium 7.8 mg/dL (8.6-10.3); Magnesium 1.8 mg/dL (1.9-2.7); Total Bilirubin 1.9 mg/dL (0.2-1.0)
[2020-03-10 05:32] LABS: BUN/Creatinine Ratio 26.7 (8-20); EGFR African American 103.5 (>60); EGFR Non-African American 85.5 (>60); Globulin 2.5 g/dL (2-4); Phosphorus 2.3 mg/dL (2.5-5.0); Total Protein 4.9 g/dL (6.4-8.9)
[2020-03-10 05:38] LABS: Potassium 3.9 mmol/L (3.5-5.0)
[2020-03-10] MEDS: Heparin 5000 UNITS/ML 1 mL VIAL SUBCUT SCH ×3 (06:05→21:36)
[2020-03-10] MEDS ORDERED: Magnesium Sulfate 2 gm BAG 2 GM/50 ML BAG IVPB ONE ×2 (06:13→07:17)
[2020-03-10] MEDS ORDERED: Potassium Acid Phos 500 mg TAB PO ONE (06:13)
[2020-03-10 06:30] LABS: ABS Basophils 0.1 10^3/ul (0-0.2); ABS Lymphocytes 1.1 10^3/ul (1.0-4.8); ABS Monocytes 0.8 10^3/ul (0-0.8); ABS Neutrophils 7.3 10^3/ul (1.5-7.7); Eosinophil % 0.3 %; Hematocrit 30 % (42-52); Hemoglobin 10.4 g/dL (14.0-18.0); Lymphocyte % 12.1 %; Mean Corpuscular HGB Conc 34 g/dL (31-36); Mean Corpuscular Hemoglobin 35 pg (27-31); Mean Corpuscular Volume 102 fL (80-94); Mean Platelet Volume 7.5 fL (7.4-10.4); Platelet Count 72 10^3/uL (150-450); Red Blood Count 2.96 10^6 /uL (4.18-5.48); Red Cell Distribution Width 23 % (10-15); White Blood Count 9.3 10^3/uL (3.5-10.8)
[2020-03-10] MEDS: Pantoprazole VIAL 40 MG VIAL IV SCH (09:01)
[2020-03-10] MEDS: Mometasone/Formoter 100/5 MDI INH SCH ×2 (10:28→19:56)
[2020-03-10] MEDS: NS 0.9% 1000 ml BAG 1,000 ML IV SCH (11:04)
[2020-03-10 12:09] LABS: Fluid Type, Glucose PERITONEAL; Glucose, BF 124 mg/dL
[2020-03-10 12:10] LABS: Fluid Type, Protein, Total PERITONEAL
[2020-03-10 12:28] LABS: Albumin, BF <0.3 g/dL; Fluid Type, Albumin PERITONEAL
[2020-03-10 14:35] LABS: Lactate Dehydrogenase, BF 30 U/L
[2020-03-11] MEDS: Lactulose 30 ml UDC PO SCH ×4 (03:45→21:04)
[2020-03-11 04:18] LABS: ABS Eosinophils 0.1 10^3/ul (0-0.6); ABS Lymphocytes 1.2 10^3/ul (1.0-4.8); ABS Monocytes 0.7 10^3/ul (0-0.8); ABS Neutrophils 6.2 10^3/ul (1.5-7.7); Hematocrit 30 % (42-52); Hemoglobin 10.3 g/dL (14.0-18.0); Lymphocyte % 14.2 %; Mean Corpuscular HGB Conc 34 g/dL (31-36); Mean Corpuscular Hemoglobin 33 pg (27-31); Mean Corpuscular Volume 96 fL (80-94); Mean Platelet Volume 6.9 fL (7.4-10.4); Platelet Count 85 10^3/uL (150-450); Red Blood Count 3.14 10^6 /uL (4.18-5.48); Red Cell Distribution Width 22 % (10-15); White Blood Count 8.2 10^3/uL (3.5-10.8)
[2020-03-11 04:23] LABS: Albumin 2.3 g/dL (3.2-5.2); Albumin/Globulin Ratio 0.9 (1-3); BUN/Creatinine Ratio 30.6 (8-20); Calcium 7.9 mg/dL (8.6-10.3); EGFR African American 133.8 (>60); EGFR Non-African American 110.6 (>60); Globulin 2.6 g/dL (2-4); Magnesium 2.3 mg/dL (1.9-2.7); Phosphorus 2.4 mg/dL (2.5-5.0); Potassium 3.5 mmol/L (3.5-5.0); Total Bilirubin 1.9 mg/dL (0.2-1.0); Total Protein 4.9 g/dL (6.4-8.9)
[2020-03-11] MEDS: Heparin 5000 UNITS/ML 1 mL VIAL SUBCUT SCH ×3 (06:20→21:06)
[2020-03-11] MEDS: Mometasone/Formoter 100/5 MDI INH SCH ×2 (07:38→19:31)
[2020-03-11] MEDS: Pantoprazole VIAL 40 MG VIAL IV SCH (09:21)
[2020-03-12] MEDS: Heparin 5000 UNITS/ML 1 mL VIAL SUBCUT SCH ×2 (06:14→15:37)
[2020-03-12] MEDS: Lactulose 30 ml UDC PO SCH ×3 (06:14→21:55)
[2020-03-12 06:46] LABS: ABS Basophils 0.1 10^3/ul (0-0.2); ABS Eosinophils 0.1 10^3/ul (0-0.6); ABS Lymphocytes 1.4 10^3/ul (1.0-4.8); ABS Monocytes 0.9 10^3/ul (0-0.8); ABS Neutrophils 5.8 10^3/ul (1.5-7.7); Eosinophil % 0.8 %; Hematocrit 31 % (42-52); Hemoglobin 10.8 g/dL (14.0-18.0); Lymphocyte % 16.7 %; Mean Corpuscular HGB Conc 35 g/dL (31-36); Mean Corpuscular Hemoglobin 34 pg (27-31); Mean Corpuscular Volume 97 fL (80-94); Mean Platelet Volume 7.3 fL (7.4-10.4); Nucleated Red Blood Cells % 0.1; Platelet Count 101 10^3/uL (150-450); Red Blood Count 3.17 10^6 /uL (4.18-5.48); Red Cell Distribution Width 22 % (10-15); White Blood Count 8.1 10^3/uL (3.5-10.8)
[2020-03-12 07:05] LABS: Albumin 2.2 g/dL (3.2-5.2); Albumin/Globulin Ratio 0.8 (1-3); BUN/Creatinine Ratio 26.1 (8-20); EGFR African American 140.6 (>60); EGFR Non-African American 116.2 (>60); Globulin 2.6 g/dL (2-4); Total Protein 4.8 g/dL (6.4-8.9)
[2020-03-12] MEDS: Mometasone/Formoter 100/5 MDI INH SCH ×2 (08:56→19:21)
[2020-03-12] MEDS ORDERED: Bivalirudin 250 MG in NS 0.9% 50 ML 50 ML IV SCH (17:00)
[2020-03-12] MEDS ORDERED: Bivalirudin 250 MG in NS 0.9% 50 ML Total BAG IV SCH (19:00)
[2020-03-12 20:45] LABS: HIT ELISA < 0.075 OD (<0.400)
[2020-03-13 04:07] LABS: ABS Eosinophils 0.1 10^3/ul (0-0.6); ABS Lymphocytes 1.2 10^3/ul (1.0-4.8); ABS Monocytes 0.7 10^3/ul (0-0.8); ABS Neutrophils 4.6 10^3/ul (1.5-7.7); Eosinophil % 1.7 %; Hematocrit 30 % (42-52); Hemoglobin 10.4 g/dL (14.0-18.0); Lymphocyte % 17.6 %; Mean Corpuscular HGB Conc 34 g/dL (31-36); Mean Corpuscular Hemoglobin 33 pg (27-31); Mean Corpuscular Volume 97 fL (80-94); Mean Platelet Volume 7.2 fL (7.4-10.4); Nucleated Red Blood Cells % 0.1; Platelet Count 96 10^3/uL (150-450); Red Blood Count 3.13 10^6 /uL (4.18-5.48); Red Cell Distribution Width 22 % (10-15); White Blood Count 6.6 10^3/uL (3.5-10.8)
[2020-03-13 04:11] LABS: INR 1.87 (0.82-1.09)
[2020-03-13 04:19] LABS: BUN/Creatinine Ratio 31.7 (8-20); Calcium 7.8 mg/dL (8.6-10.3); EGFR African American 165.2 (>60); EGFR Non-African American 136.5 (>60); Potassium 4.1 mmol/L (3.5-5.0)
[2020-03-13] MEDS: Lactulose 30 ml UDC PO SCH ×3 (05:53→20:28)
[2020-03-13] MEDS: Enoxaparin 100 MG/ML SYR SUBCUT SCH ×2 (09:14→20:49)
[2020-03-13] MEDS: Mometasone/Formoter 100/5 MDI INH SCH ×2 (10:27→19:42)
[2020-03-14] MEDS: Lactulose 30 ml UDC PO SCH ×3 (06:14→20:58)
[2020-03-14 06:29] LABS: ABS Basophils 0.1 10^3/ul (0-0.2); ABS Eosinophils 0.1 10^3/ul (0-0.6); ABS Lymphocytes 1.1 10^3/ul (1.0-4.8); ABS Monocytes 0.8 10^3/ul (0-0.8); ABS Neutrophils 4.9 10^3/ul (1.5-7.7); Eosinophil % 1.1 %; Hematocrit 30 % (42-52); Hemoglobin 10.7 g/dL (14.0-18.0); Lymphocyte % 15.8 %; Mean Corpuscular HGB Conc 36 g/dL (31-36); Mean Corpuscular Hemoglobin 35 pg (27-31); Mean Corpuscular Volume 100 fL (80-94); Mean Platelet Volume 7.6 fL (7.4-10.4); Nucleated Red Blood Cells % 0.1; Platelet Count 110 10^3/uL (150-450); Red Blood Count 3.04 10^6 /uL (4.18-5.48); Red Cell Distribution Width 21 % (10-15); White Blood Count 6.9 10^3/uL (3.5-10.8)
[2020-03-14 06:39] LABS: Albumin 2.2 g/dL (3.2-5.2); Albumin/Globulin Ratio 0.8 (1-3); BUN/Creatinine Ratio 30.6 (8-20); Calcium 8.2 mg/dL (8.6-10.3); EGFR African American 159.1 (>60); EGFR Non-African American 131.5 (>60); Globulin 2.7 g/dL (2-4); Potassium 4.1 mmol/L (3.5-5.0); Total Bilirubin 1.4 mg/dL (0.2-1.0); Total Protein 4.9 g/dL (6.4-8.9)
[2020-03-14 06:56] LABS: INR 1.6 (0.82-1.09)
[2020-03-14] MEDS ORDERED: Warfarin per PHARMACY **NOTE FOLLOW UP SCH (08:00)
[2020-03-14] MEDS: Mometasone/Formoter 100/5 MDI INH SCH ×2 (08:07→19:31)
[2020-03-14] MEDS ORDERED: fentaNYL 100 mcg/2 ml 50 MCG/ML VIAL ONE (09:46)
[2020-03-14] MEDS ORDERED: Midazolam 10 mg/10 ml VIAL 1 mg/ml 10 ml VIAL (10 mg) ONE (09:46)
[2020-03-14] MEDS: Enoxaparin 100 MG/ML SYR SUBCUT SCH ×2 (11:57→20:57)
[2020-03-15] MEDS: Lactulose 30 ml UDC PO SCH (05:53)
[2020-03-15 07:16] LABS: INR 1.55 (0.82-1.09)
[2020-03-15 07:16] LABS: ABS Basophils 0.1 10^3/ul (0-0.2); ABS Eosinophils 0.1 10^3/ul (0-0.6); ABS Lymphocytes 1.2 10^3/ul (1.0-4.8); ABS Monocytes 0.8 10^3/ul (0-0.8); ABS Neutrophils 4.5 10^3/ul (1.5-7.7); Eosinophil % 1.2 %; Hematocrit 32 % (42-52); Hemoglobin 11.4 g/dL (14.0-18.0); Lymphocyte % 17.7 %; Mean Corpuscular HGB Conc 36 g/dL (31-36); Mean Corpuscular Hemoglobin 35 pg (27-31); Mean Corpuscular Volume 98 fL (80-94); Mean Platelet Volume 7.2 fL (7.4-10.4); Nucleated Red Blood Cells % 0.1; Platelet Count 116 10^3/uL (150-450); Red Blood Count 3.25 10^6 /uL (4.18-5.48); Red Cell Distribution Width 22 % (10-15); White Blood Count 6.7 10^3/uL (3.5-10.8)
[2020-03-15 07:27] LABS: BUN/Creatinine Ratio 25.4 (8-20); Calcium 8.5 mg/dL (8.6-10.3); EGFR Non-African American 112.4 (>60); Potassium 4.3 mmol/L (3.5-5.0)
[2020-03-15] MEDS: Enoxaparin 100 MG/ML SYR SUBCUT SCH (07:40)
[2020-03-15] MEDS: Mometasone/Formoter 100/5 MDI INH SCH (08:08)
[2020-03-15 12:02] VITALS: BP 104/60
== END 2020-03-15 14:00 | disposition home or self-care (01) | DRG 279 ==
LOC: ED 22:38 → ICU 03-08 02:06 → MED 03-11 10:31 → ICU 03-12 18:49 → MED 03-13 14:50
PROVIDERS: ADMIT Nurse Practitioner; ATTEND Internal Medicine

== ENCOUNTER 2020-03-22 00:43 | Inpatient (IN) ==
[2020-03-22] MEDS ORDERED: NS 0.9% 1000 ml BAG 1,000 ML IV SCH ×2 (01:00→03:00)
[2020-03-22 01:41] LABS: Hematocrit 29 % (42-52); Mean Corpuscular HGB Conc 34 g/dL (31-36); Mean Corpuscular Hemoglobin 35 pg (27-31); Mean Corpuscular Volume 102 fL (80-94); Mean Platelet Volume 7.7 fL (7.4-10.4); Platelet Count 194 10^3/uL (150-450); Red Blood Count 2.88 10^6 /uL (4.18-5.48); Red Cell Distribution Width 23 % (10-15); White Blood Count 14.9 10^3/uL (3.5-10.8)
[2020-03-22 01:44] LABS: INR 3.86 (0.82-1.09)
[2020-03-22 02:01] LABS: ALT 29 U/L (7-52); AST 38 U/L (13-39); Albumin 2.3 g/dL (3.2-5.2); Albumin/Globulin Ratio 0.7 (1-3); Alkaline Phosphatase 241 U/L (34-104); Anion Gap 6 mmol/L (2-11); BUN/Creatinine Ratio 19.8 (8-20); Blood Urea Nitrogen 25 mg/dL (6-24); C Reactive Protein 21.78 mg/L (<8.01); CO2 Carbon Dioxide 28 mmol/L (22-32); Calcium 8.2 mg/dL (8.6-10.3); Chloride 98 mmol/L (101-111); EGFR African American 70.2 (>60); Globulin 3.2 g/dL (2-4); Glucose 117 mg/dL (70-100); Magnesium 2.1 mg/dL (1.9-2.7); Potassium 4.7 mmol/L (3.5-5.0); Sodium 132 mmol/L (135-145); Total Protein 5.5 g/dL (6.4-8.9)
[2020-03-22 02:07] LABS: Troponin I 0.03 ng/mL (<0.03)
[2020-03-22 02:13] LABS: Alcohol, S < 10 mg/dL (<10)
[2020-03-22 02:29] LABS: TSH Ultra Thyroid Stim Horm 2.78 mcIU/mL (0.34-5.60)
[2020-03-22 02:44] LABS: ABS Basophils 0.1 10^3/ul (0-0.2); ABS Eosinophils 0.1 10^3/ul (0-0.6); ABS Lymphocytes 2.7 10^3/ul (1.0-4.8); ABS Monocytes 1.4 10^3/ul (0-0.8); ABS Neutrophils 9.9 10^3/ul (1.5-7.7); Eosinophil % 0.9 %; Lymphocyte % 18.9 %; Nucleated Red Blood Cells % 0.3
[2020-03-22] MEDS ORDERED: Oxymetazoline 0.05% NASAL SPR 15 ML BTL RIGHT NARE ONE (02:48)
[2020-03-22] MEDS ORDERED: Ondansetron 4 mg VIAL 2 MG/ML 2 ml VIAL IV PRN (02:52)
[2020-03-22] MEDS ORDERED: cefTRIAXone 2 GM ADDV.VIAL 2 GM in NS 0.9% 100 ml BAG 100 ML IV ONE (03:04)
[2020-03-22] MEDS: Pantoprazole VIAL 40 MG VIAL IV SCH (04:49)
[2020-03-22] MEDS: Lactulose 300 ML for PR 200 GM/300 ML BTL PR SCH ×3 (05:27→22:07)
[2020-03-22 05:28] LABS: Urine Appearance Clear; Urine Bilirubin Negative (Negative); Urine Blood Negative (Negative); Urine Color Yellow; Urine Glucose Negative (Negative); Urine Ketones Negative (Negative); Urine Nitrite Negative (Negative); Urine Protein Negative (Negative); Urine Specific Gravity 1.016 (1.010-1.030); Urine Urobilinogen Negative (Negative)
[2020-03-22 06:02] LABS: Urine Sodium Concentration < 18 mmol/L
[2020-03-22 06:13] LABS: ABS Basophils 0.1 10^3/ul (0-0.2); ABS Eosinophils 0.1 10^3/ul (0-0.6); ABS Lymphocytes 2.3 10^3/ul (1.0-4.8); ABS Monocytes 1.5 10^3/ul (0-0.8); ABS Neutrophils 11.5 10^3/ul (1.5-7.7); Eosinophil % 0.8 %; Hematocrit 31 % (42-52); Hemoglobin 10.4 g/dL (14.0-18.0); Lymphocyte % 14.7 %; Mean Corpuscular HGB Conc 34 g/dL (31-36); Mean Corpuscular Hemoglobin 35 pg (27-31); Mean Corpuscular Volume 103 fL (80-94); Mean Platelet Volume 7.7 fL (7.4-10.4); Nucleated Red Blood Cells % 0.1; Platelet Count 196 10^3/uL (150-450); Red Blood Count 2.99 10^6 /uL (4.18-5.48); Red Cell Distribution Width 24 % (10-15); White Blood Count 15.5 10^3/uL (3.5-10.8)
[2020-03-22 06:15] LABS: INR 3.61 (0.82-1.09)
[2020-03-22 06:16] LABS: Troponin I 0.03 ng/mL (<0.03)
[2020-03-22 06:29] LABS: Albumin/Globulin Ratio 0.7 (1-3); BUN/Creatinine Ratio 23.1 (8-20); Calcium 7.3 mg/dL (8.6-10.3); EGFR African American 87.6 (>60); EGFR Non-African American 72.4 (>60); Globulin 2.8 g/dL (2-4); Total Bilirubin 1.1 mg/dL (0.2-1.0); Total Protein 4.8 g/dL (6.4-8.9)
[2020-03-22] MEDS ORDERED: Mometasone/Formoter 100/5 MDI INH SCH (09:00)
[2020-03-22] MEDS ORDERED: Warfarin per PHARMACY **NOTE FOLLOW UP SCH (14:00)
[2020-03-22] MEDS: Lactulose 30 ml UDC PO SCH ×2 (14:35→21:42)
[2020-03-22] MEDS ORDERED: Warfarin - No Order Today **NOTE FOLLOW UP ONE (17:00)
[2020-03-23] MEDS: cefTRIAXone 2 GM ADDV.VIAL 2 GM in NS 0.9% 100 ml BAG 100 ML IV SCH (03:34)
[2020-03-23] MEDS: Pantoprazole VIAL 40 MG VIAL IV SCH (03:34)
[2020-03-23 05:41] LABS: INR 2.57 (0.82-1.09)
[2020-03-23 05:52] LABS: Anion Gap 8 mmol/L (2-11); BUN/Creatinine Ratio 26.3 (8-20); Blood Urea Nitrogen 30 mg/dL (6-24); CO2 Carbon Dioxide 25 mmol/L (22-32); Chloride 100 mmol/L (101-111); EGFR African American 78.8 (>60); EGFR Non-African American 65.1 (>60); Glucose 107 mg/dL (70-100); Magnesium 2.1 mg/dL (1.9-2.7); Phosphorus 4.2 mg/dL (2.5-5.0); Potassium 4.7 mmol/L (3.5-5.0); Sodium 133 mmol/L (135-145)
[2020-03-23 06:20] LABS: Hematocrit 30 % (42-52); Hemoglobin 10.2 g/dL (14.0-18.0); Mean Corpuscular HGB Conc 34 g/dL (31-36); Mean Corpuscular Hemoglobin 35 pg (27-31); Mean Corpuscular Volume 103 fL (80-94); Platelet Count 121 10^3/uL (150-450); Red Cell Distribution Width 24 % (10-15); White Blood Count 10.7 10^3/uL (3.5-10.8)
[2020-03-23] MEDS ORDERED: Furosemide 20 mg/2 ml IV VIAL IV SLOW PU ONE (07:31)
[2020-03-23] MEDS: Lactulose 30 ml UDC PO SCH ×3 (08:15→21:10)
[2020-03-23 12:13] LABS: Troponin I 0.03 ng/mL (<0.03)
[2020-03-23 16:22] LABS: Urine Appearance Clear; Urine Bilirubin Negative (Negative); Urine Blood Negative (Negative); Urine Color Yellow; Urine Glucose Negative (Negative); Urine Ketones Negative (Negative); Urine Nitrite Negative (Negative); Urine Protein Negative (Negative); Urine Specific Gravity 1.015 (1.010-1.030); Urine Urobilinogen Negative (Negative)
[2020-03-23 16:36] LABS: Urine Benzodiazepine Screen None Detected (None Detect); Urine Cannabinoids Screen None Detected (None Detect); Urine Opiates Screen None Detected (None Detect)
[2020-03-24] MEDS: cefTRIAXone 2 GM ADDV.VIAL 2 GM in NS 0.9% 100 ml BAG 100 ML IV SCH (03:16)
[2020-03-24] MEDS: Pantoprazole VIAL 40 MG VIAL IV SCH (04:10)
[2020-03-24 05:49] LABS: INR 2.5 (0.82-1.09)
[2020-03-24 06:04] LABS: BUN/Creatinine Ratio 30.1 (8-20); Calcium 7.8 mg/dL (8.6-10.3); EGFR African American 79.6 (>60); EGFR Non-African American 65.8 (>60); Potassium 4.3 mmol/L (3.5-5.0)
[2020-03-24] MEDS: Lactulose 30 ml UDC PO SCH ×3 (10:09→20:31)
[2020-03-25] MEDS: Pantoprazole VIAL 40 MG VIAL IV SCH (03:33)
[2020-03-25] MEDS: cefTRIAXone 2 GM ADDV.VIAL 2 GM in NS 0.9% 100 ml BAG 100 ML IV SCH (03:33)
[2020-03-25] MEDS: Lactulose 30 ml UDC PO SCH ×3 (08:24→21:33)
[2020-03-25 10:38] LABS: INR 2.98 (0.82-1.09)
[2020-03-26] MEDS: Pantoprazole VIAL 40 MG VIAL IV SCH (03:33)
[2020-03-26] MEDS: cefTRIAXone 2 GM ADDV.VIAL 2 GM in NS 0.9% 100 ml BAG 100 ML IV SCH (03:35)
[2020-03-26 08:06] LABS: INR 3.12 (0.82-1.09)
[2020-03-26 08:33] VITALS: BP 127/72
[2020-03-26] MEDS: Lactulose 30 ml UDC PO SCH (08:36)
== END 2020-03-26 12:20 | disposition home or self-care (01) | DRG 720 ==
LOC: ED 00:43 → ICU 03:17 → MED 03-24 15:35
PROVIDERS: ADMIT Student in an Organized Health Care Education/Training Program; ATTEND Internal Medicine

== ENCOUNTER 2020-06-09 19:18 | Inpatient (IN) ==
[2020-06-09 20:18] LABS: Hematocrit 33 % (42-52); Hemoglobin 11.1 g/dL (14.0-18.0); Mean Corpuscular HGB Conc 34 g/dL (31-36); Mean Corpuscular Hemoglobin 35 pg (27-31); Mean Corpuscular Volume 102 fL (80-94); Mean Platelet Volume 7.8 fL (7.4-10.4); Platelet Count 151 10^3/uL (150-450); Red Blood Count 3.22 10^6 /uL (4.18-5.48); Red Cell Distribution Width 18 % (10-15); White Blood Count 15.1 10^3/uL (3.5-10.8)
[2020-06-09 20:19] LABS: ABS Eosinophils 0.1 10^3/ul (0-0.6); ABS Lymphocytes 1.6 10^3/ul (1.0-4.8); ABS Monocytes 1.7 10^3/ul (0-0.8); ABS Neutrophils 11.7 10^3/ul (1.5-7.7); Eosinophil % 0.8 %; Lymphocyte % 10.3 %
[2020-06-09 20:25] LABS: INR 1.41 (0.82-1.09)
[2020-06-09] MEDS ORDERED: Lactulose 30 ml UDC PO ONE (20:27)
[2020-06-09 20:37] LABS: Ammonia 57 mcmol/L (16-53)
[2020-06-09 20:39] LABS: ALT 27 U/L (7-52); AST 37 U/L (13-39); Albumin 2.3 g/dL (3.2-5.2); Albumin/Globulin Ratio 0.5 (1-3); Alkaline Phosphatase 266 U/L (34-104); BUN/Creatinine Ratio 38.5 (8-20); Blood Urea Nitrogen 77 mg/dL (6-24); C Reactive Protein 115.89 mg/L (<8.01); CO2 Carbon Dioxide 29 mmol/L (22-32); Calcium 8.9 mg/dL (8.6-10.3); Chloride 89 mmol/L (101-111); EGFR African American 41.2 (>60); Globulin 4.2 g/dL (2-4); Glucose 117 mg/dL (70-100); Magnesium 2.6 mg/dL (1.9-2.7); Sodium 124 mmol/L (135-145); Total Protein 6.5 g/dL (6.4-8.9)
[2020-06-09 20:40] LABS: Anion Gap 6 mmol/L (2-11); Potassium 5.1 mmol/L (3.5-5.0)
[2020-06-09 20:42] LABS: Alcohol, S < 10 mg/dL (<10)
[2020-06-09 20:43] LABS: BNP 138 pg/mL (<=100)
[2020-06-09 20:44] LABS: Urine Appearance Clear; Urine Bilirubin Negative (Negative); Urine Blood Negative (Negative); Urine Color Yellow; Urine Glucose Negative (Negative); Urine Ketones Negative (Negative); Urine Nitrite Negative (Negative); Urine Protein Negative (Negative); Urine Specific Gravity 1.012 (1.010-1.030); Urine Urobilinogen Negative (Negative)
[2020-06-09 20:57] LABS: TSH Ultra Thyroid Stim Horm 1.87 mcIU/mL (0.34-5.60)
[2020-06-09 20:59] LABS: Urine Benzodiazepine Screen None Detected (None Detect); Urine Cannabinoids Screen None Detected (None Detect); Urine Opiates Screen None Detected (None Detect)
[2020-06-09 21:16] LABS: Polychromasia 1+
[2020-06-09 21:45] LABS: Troponin I 0.03 ng/mL (<0.03)
[2020-06-10] MEDS ORDERED: cefTAZidime (*) 2 GM in NS 0.9% 100 ml BAG 100 ML IVPB ONE (00:32)
[2020-06-10] MEDS ORDERED: Iodixanol (CONTRAST) 320 MG/ML 100 ML SDV IV ONE (01:12)
[2020-06-10] MEDS ORDERED: NS 0.9% 1000 ml BAG 1,000 ML IV SCH (01:30)
[2020-06-10] MEDS ORDERED: Enoxaparin 30 MG/0.3 ML SYR SUBCUT SCH (02:00)
[2020-06-10] MEDS ORDERED: Azithromycin 500 mg/250 ml NS 500 MG/250 ML BAG IVPB SCH (03:00)
[2020-06-10] MEDS ORDERED: metroNIDAZOLE IV 500 MG/100ML 500 MG/100 ML BAG IVPB SCH (03:00)
[2020-06-10] MEDS ORDERED: Heparin 5000 UNITS/ML 1 mL VIAL IV SCH (03:00)
[2020-06-10 03:02] LABS: Troponin I 0.03 ng/mL (<0.03)
[2020-06-10] MEDS: Mometasone/Formoter 100/5 MDI INH SCH ×3 (03:12→19:14)
[2020-06-10] MEDS: Pantoprazole VIAL 40 MG VIAL IV SCH (03:16)
[2020-06-10 03:42] LABS: Hematocrit 32 % (42-52); Hemoglobin 10.6 g/dL (14.0-18.0); Mean Corpuscular HGB Conc 33 g/dL (31-36); Mean Corpuscular Hemoglobin 32 pg (27-31); Mean Corpuscular Volume 96 fL (80-94); Mean Platelet Volume 7.7 fL (7.4-10.4); Platelet Count 125 10^3/uL (150-450); Red Blood Count 3.33 10^6 /uL (4.18-5.48); Red Cell Distribution Width 17 % (10-15)
[2020-06-10 03:59] LABS: EGFR Non-African American 37.2 (>60)
[2020-06-10] MEDS: Heparin DRIP 25,000 UNITS BAG 25,000 UNITS/500 ML BAG IV SCH ×2 (04:04→19:08)
[2020-06-10] MEDS: metroNIDAZOLE IV 500 MG/100ML 500 MG/100 ML BAG IVPB SCH ×3 (04:12→19:12)
[2020-06-10 04:19] LABS: ABS Basophils 0.1 10^3/ul (0-0.2); ABS Eosinophils 0.1 10^3/ul (0-0.6); ABS Lymphocytes 1.3 10^3/ul (1.0-4.8); ABS Monocytes 1.3 10^3/ul (0-0.8); ABS Neutrophils 9.5 10^3/ul (1.5-7.7); Eosinophil % 0.7 %; Lymphocyte % 10.4 %; Nucleated Red Blood Cells % 0.2
[2020-06-10] MEDS: cefTRIAXone 2 GM ADDV.VIAL 2 GM in NS 0.9% 100 ml BAG 100 ML IV SCH (13:01)
[2020-06-11] MEDS: Pantoprazole VIAL 40 MG VIAL IV SCH (02:01)
[2020-06-11] MEDS: metroNIDAZOLE IV 500 MG/100ML 500 MG/100 ML BAG IVPB SCH ×3 (02:01→20:24)
[2020-06-11 06:43] LABS: Hematocrit 30 % (42-52); Hemoglobin 10.4 g/dL (14.0-18.0); Mean Corpuscular HGB Conc 34 g/dL (31-36); Mean Corpuscular Hemoglobin 33 pg (27-31); Mean Corpuscular Volume 97 fL (80-94); Mean Platelet Volume 7.4 fL (7.4-10.4); Platelet Count 116 10^3/uL (150-450); Red Blood Count 3.12 10^6 /uL (4.18-5.48); Red Cell Distribution Width 17 % (10-15); White Blood Count 10.8 10^3/uL (3.5-10.8)
[2020-06-11 06:57] LABS: INR 1.68 (0.82-1.09)
[2020-06-11 06:59] LABS: Albumin 2.1 g/dL (3.2-5.2); Albumin/Globulin Ratio 0.6 (1-3); BUN/Creatinine Ratio 38.2 (8-20); Calcium 8.4 mg/dL (8.6-10.3); EGFR African American 56.5 (>60); EGFR Non-African American 46.7 (>60); Globulin 3.7 g/dL (2-4); Potassium 4.2 mmol/L (3.5-5.0); Total Bilirubin 1.5 mg/dL (0.2-1.0); Total Protein 5.8 g/dL (6.4-8.9)
[2020-06-11] MEDS: Mometasone/Formoter 100/5 MDI INH SCH ×2 (09:31→19:58)
[2020-06-11] MEDS ORDERED: Perflutren Lipid Microsphere 3 ML VIAL ONE (09:37)
[2020-06-11] MEDS: cefTRIAXone 2 GM ADDV.VIAL 2 GM in NS 0.9% 100 ml BAG 100 ML IV SCH (14:01)
[2020-06-11] MEDS: Enoxaparin 100 MG/ML SYR SUBCUT SCH (20:24)
[2020-06-12] MEDS: metroNIDAZOLE IV 500 MG/100ML 500 MG/100 ML BAG IVPB SCH ×3 (01:55→19:51)
[2020-06-12] MEDS: Pantoprazole VIAL 40 MG VIAL IV SCH (01:55)
[2020-06-12 06:54] LABS: Hematocrit 30 % (42-52); Hemoglobin 10.4 g/dL (14.0-18.0); Mean Corpuscular HGB Conc 35 g/dL (31-36); Mean Corpuscular Hemoglobin 36 pg (27-31); Mean Corpuscular Volume 103 fL (80-94); Mean Platelet Volume 7.4 fL (7.4-10.4); Platelet Count 139 10^3/uL (150-450); Red Blood Count 2.92 10^6 /uL (4.18-5.48); Red Cell Distribution Width 18 % (10-15); White Blood Count 11.9 10^3/uL (3.5-10.8)
[2020-06-12 06:59] LABS: INR 1.8 (0.82-1.09)
[2020-06-12 07:05] LABS: Albumin 2.2 g/dL (3.2-5.2); Albumin/Globulin Ratio 0.6 (1-3); BUN/Creatinine Ratio 34.5 (8-20); Calcium 8.4 mg/dL (8.6-10.3); EGFR African American 49.3 (>60); EGFR Non-African American 40.8 (>60); Total Bilirubin 1.7 mg/dL (0.2-1.0); Total Protein 6.2 g/dL (6.4-8.9)
[2020-06-12] MEDS: Mometasone/Formoter 100/5 MDI INH SCH ×2 (07:50→19:33)
[2020-06-12] MEDS: Enoxaparin 100 MG/ML SYR SUBCUT SCH ×2 (10:08→19:51)
[2020-06-12] MEDS: cefTRIAXone 2 GM ADDV.VIAL 2 GM in NS 0.9% 100 ml BAG 100 ML IV SCH (12:58)
[2020-06-13] MEDS ORDERED: Metoprolol Tartrate 5 mg VIAL 5 ml VIAL (1 mg/ml) IV ONE (02:35)
[2020-06-13] MEDS ORDERED: Metoprolol Tartrate 5 mg VIAL 5 ml VIAL (1 mg/ml) ONE (02:35)
[2020-06-13] MEDS: metroNIDAZOLE IV 500 MG/100ML 500 MG/100 ML BAG IVPB SCH ×3 (02:41→19:42)
[2020-06-13] MEDS: Pantoprazole VIAL 40 MG VIAL IV SCH (02:41)
[2020-06-13 06:05] LABS: ABS Basophils 0.1 10^3/ul (0-0.2); ABS Eosinophils 0.1 10^3/ul (0-0.6); ABS Lymphocytes 1.2 10^3/ul (1.0-4.8); ABS Monocytes 0.9 10^3/ul (0-0.8); Eosinophil % 1.2 %; Hematocrit 29 % (42-52); Hemoglobin 10.2 g/dL (14.0-18.0); Lymphocyte % 11.2 %; Mean Corpuscular HGB Conc 35 g/dL (31-36); Mean Corpuscular Hemoglobin 35 pg (27-31); Mean Corpuscular Volume 101 fL (80-94); Mean Platelet Volume 7.3 fL (7.4-10.4); Nucleated Red Blood Cells % 0.2; Platelet Count 119 10^3/uL (150-450); Red Blood Count 2.92 10^6 /uL (4.18-5.48); Red Cell Distribution Width 18 % (10-15); White Blood Count 10.3 10^3/uL (3.5-10.8)
[2020-06-13 06:21] LABS: BUN/Creatinine Ratio 39.1 (8-20); Calcium 8.3 mg/dL (8.6-10.3); EGFR African American 63.2 (>60); EGFR Non-African American 52.2 (>60); Magnesium 2.1 mg/dL (1.9-2.7); Potassium 3.5 mmol/L (3.5-5.0)
[2020-06-13] MEDS: Mometasone/Formoter 100/5 MDI INH SCH ×2 (08:59→20:42)
[2020-06-13] MEDS: Enoxaparin 100 MG/ML SYR SUBCUT SCH ×2 (11:02→19:42)
[2020-06-13] MEDS: cefTRIAXone 2 GM ADDV.VIAL 2 GM in NS 0.9% 100 ml BAG 100 ML IV SCH (12:44)
[2020-06-14] MEDS: Pantoprazole VIAL 40 MG VIAL IV SCH (03:31)
[2020-06-14] MEDS: metroNIDAZOLE IV 500 MG/100ML 500 MG/100 ML BAG IVPB SCH ×3 (03:32→20:34)
[2020-06-14 06:11] LABS: Albumin 1.9 g/dL (3.2-5.2); Albumin/Globulin Ratio 0.5 (1-3); BUN/Creatinine Ratio 44.7 (8-20); Calcium 7.7 mg/dL (8.6-10.3); EGFR African American 98.4 (>60); EGFR Non-African American 81.3 (>60); Globulin 3.5 g/dL (2-4); Potassium 3.1 mmol/L (3.5-5.0); Total Bilirubin 1.1 mg/dL (0.2-1.0); Total Protein 5.4 g/dL (6.4-8.9)
[2020-06-14 06:35] LABS: Hematocrit 28 % (42-52); Hemoglobin 9.6 g/dL (14.0-18.0); Mean Corpuscular HGB Conc 34 g/dL (31-36); Mean Corpuscular Hemoglobin 33 pg (27-31); Mean Corpuscular Volume 97 fL (80-94); Mean Platelet Volume 6.9 fL (7.4-10.4); Platelet Count 99 10^3/uL (150-450); Red Blood Count 2.87 10^6 /uL (4.18-5.48); Red Cell Distribution Width 18 % (10-15); White Blood Count 6.8 10^3/uL (3.5-10.8)
[2020-06-14] MEDS ORDERED: Potassium Chlor 20 meq TAB.ER PO ONE (07:00)
[2020-06-14] MEDS: Enoxaparin 100 MG/ML SYR SUBCUT SCH ×2 (07:20→20:35)
[2020-06-14] MEDS: Mometasone/Formoter 100/5 MDI INH SCH ×2 (07:55→19:41)
[2020-06-14] MEDS: cefTRIAXone 2 GM ADDV.VIAL 2 GM in NS 0.9% 100 ml BAG 100 ML IV SCH (14:50)
[2020-06-14] MEDS: Lactulose 30 ml UDC PO SCH ×2 (20:35→23:28)
[2020-06-15] MEDS: metroNIDAZOLE IV 500 MG/100ML 500 MG/100 ML BAG IVPB SCH ×3 (03:12→20:02)
[2020-06-15] MEDS: Pantoprazole VIAL 40 MG VIAL IV SCH (03:12)
[2020-06-15 05:54] LABS: Hematocrit 29 % (42-52); Hemoglobin 9.9 g/dL (14.0-18.0); Mean Corpuscular HGB Conc 34 g/dL (31-36); Mean Corpuscular Hemoglobin 35 pg (27-31); Mean Corpuscular Volume 102 fL (80-94); Mean Platelet Volume 7.6 fL (7.4-10.4); Platelet Count 116 10^3/uL (150-450); Red Blood Count 2.86 10^6 /uL (4.18-5.48); Red Cell Distribution Width 18 % (10-15); White Blood Count 7.2 10^3/uL (3.5-10.8)
[2020-06-15 06:23] LABS: BUN/Creatinine Ratio 36.3 (8-20); Calcium 7.5 mg/dL (8.6-10.3); EGFR African American 118.5 (>60); Magnesium 2.1 mg/dL (1.9-2.7); Potassium 3.3 mmol/L (3.5-5.0)
[2020-06-15] MEDS: Mometasone/Formoter 100/5 MDI INH SCH ×2 (08:13→21:01)
[2020-06-15] MEDS: Enoxaparin 100 MG/ML SYR SUBCUT SCH ×2 (09:45→20:00)
[2020-06-15] MEDS: Lactulose 30 ml UDC PO SCH (09:49)
[2020-06-15] MEDS: Potassium Chloride LIQUID 20 MEQ/15 ML LIQUID PO ONE ×2 (12:27→12:51)
[2020-06-15] MEDS ORDERED: Potassium Chloride LIQUID 20 MEQ/15 ML LIQUID PO ONE (13:00)
[2020-06-15] MEDS: cefTRIAXone 2 GM ADDV.VIAL 2 GM in NS 0.9% 100 ml BAG 100 ML IV SCH (13:58)
[2020-06-16] MEDS: Pantoprazole VIAL 40 MG VIAL IV SCH (02:43)
[2020-06-16] MEDS: metroNIDAZOLE IV 500 MG/100ML 500 MG/100 ML BAG IVPB SCH ×2 (02:43→12:28)
[2020-06-16 06:34] LABS: BUN/Creatinine Ratio 33.3 (8-20); Calcium 7.7 mg/dL (8.6-10.3); EGFR Non-African American 100.9 (>60); Magnesium 1.8 mg/dL (1.9-2.7); Potassium 4.1 mmol/L (3.5-5.0)
[2020-06-16] MEDS: Mometasone/Formoter 100/5 MDI INH SCH ×2 (07:53→20:09)
[2020-06-16] MEDS: Enoxaparin 100 MG/ML SYR SUBCUT SCH ×2 (09:39→19:58)
[2020-06-16] MEDS: cefTRIAXone 2 GM ADDV.VIAL 2 GM in NS 0.9% 100 ml BAG 100 ML IV SCH (14:33)
[2020-06-17] MEDS: Pantoprazole VIAL 40 MG VIAL IV SCH (03:00)
[2020-06-17 06:10] LABS: ABS Eosinophils 0.1 10^3/ul (0-0.6); ABS Lymphocytes 1.2 10^3/ul (1.0-4.8); ABS Monocytes 0.7 10^3/ul (0-0.8); ABS Neutrophils 6.7 10^3/ul (1.5-7.7); Eosinophil % 0.8 %; Hematocrit 29 % (42-52); Hemoglobin 9.8 g/dL (14.0-18.0); Lymphocyte % 13.4 %; Mean Corpuscular HGB Conc 34 g/dL (31-36); Mean Corpuscular Hemoglobin 34 pg (27-31); Mean Corpuscular Volume 101 fL (80-94); Mean Platelet Volume 7.5 fL (7.4-10.4); Nucleated Red Blood Cells % 0.2; Platelet Count 111 10^3/uL (150-450); Red Blood Count 2.86 10^6 /uL (4.18-5.48); Red Cell Distribution Width 18 % (10-15); White Blood Count 8.6 10^3/uL (3.5-10.8)
[2020-06-17 06:25] LABS: BUN/Creatinine Ratio 32.1 (8-20); Calcium 7.5 mg/dL (8.6-10.3); EGFR Non-African American 100.9 (>60); Magnesium 1.5 mg/dL (1.9-2.7); Potassium 3.9 mmol/L (3.5-5.0)
[2020-06-17] MEDS ORDERED: Magnesium Sulfate IV 3 GM in NS 0.9% 100 ml BAG 100 ML IVPB ONE (08:36)
[2020-06-17] MEDS: Enoxaparin 100 MG/ML SYR SUBCUT SCH (10:43)
[2020-06-17] MEDS: Mometasone/Formoter 100/5 MDI INH SCH (10:56)
[2020-06-17 15:37] VITALS: BP 121/63
== END 2020-06-17 17:34 | disposition home health service (06) | DRG 720 ==
LOC: ED 19:18 → MEDTELE 06-10 01:57
PROVIDERS: ADMIT Internal Medicine; ATTEND Internal Medicine